=== PATIENT | male | born 1975 | race Caucasian/White ===

== ENCOUNTER 2018-01-09 20:20 | Emergency (ER) | payer MEDICARE, MEDICAID, SELFPAY ==
[2018-01-09 20:26] VITALS: BP 158/105; PULSE 84; RESP 18; TEMP 36.5; O2SAT 96
--- NOTE | 2018-01-09 20:47 | W.ED.GENAD ---
Discharge Plan Disposition Patient Disposition: HOME Condition: Improving Discharge Details Chief Complaint: Orthopedic Clinical Impression: Podagra Primary Care Provider: Sotero Whitt ED Provider: Benjie Morales Home Meds and New Rx's Prescriptions: New prednisone 20 mg tablet 40 mg PO DAILY 5 Days Qty: 10 RF: 0 Discharge Instructions Instructions: Gout (ED) Additional Instructions: Please take prednisone as prescribed. Follow-up in and establish primary care, for which we will place you on her follow-up list, for blood pressure recheck and to consider long-term gout therapy. Return for any acute concerns. Tylenol and/or ibuprofen as needed for pain. Please take the prednisone as prescribed Medical Decision Making 42-year-old male with history of recurrent episodes of gout presents with 3 days of right foot pain that is focused at the right great toe. He is afebrile but noted to have hypertension with blood pressures 158/100. His exam is notable for Protegra of the right foot. He states that he used to take allopurinol, not currently on regular medications. We discussed workup, evaluation, management of gout including laboratory testing, imaging, the use of colchicine versus prednisone. He states that he does not wish to stay for diagnostic tests. I do feels reasonable to place him on a course of prednisone, we will arrange for him to establish primary care near his home in [place]. He will return for any acute concerns HPI General Mode of arrival: ambulatory. Date/Time Provider Initiated Documentation: 01/09/18 20:39. Limitations to Documentation: no limitations. Information obtained by: patient and old records reviewed. History of Present Illness 42 year old M presents to the emergency department with the chief complaint of Right foot pain, described as moderate, Quality is described as aching, and is localized to the right and lower extremity. Patient reports no radiation. Patient started experiencing this day(s) and it has been constant. No relieving factors improve symptom(s), Movement worsens symptoms . Patient notes no other symptoms.; denies fever/chills. HPI Narrative: 42-year-old male with a history of recurrent episodes of gout presents with 3 days of dull, achy, nonradiating right foot pain with associated erythema and swelling. He has been ambulatory. He states he has had some minimal improvement with use of Tylenol. He states he lives in [place] and currently does not have a primary care physician. States that he used to be on allopurinol but not currently taking medications. Related Data Home Medications Medication Instructions Recorded Confirmed prednisone 40 mg PO DAILY 5 Days #10 tab 01/09/18 Previous Rx's Medication Instructions Recorded prednisone 40 mg PO DAILY 5 Days #10 tab 01/09/18 Allergies Allergy/AdvReac Type Severity Reaction Status Date / Time povidone-iodine Allergy Skin Rash Unverified 01/09/18 20:30 [From Betadine] soap [From Betadine] Allergy Skin Rash Unverified 01/09/18 20:30 General Stated Complaint: Orthopedic MAZIN: 4 Review of Systems Review of Systems 6 systems reviewed and otherwise negative PFSH Social History Smoking/Tobacco Use Status: Current every day Exam Narrative Exam Narrative: GEN: awake, alert, oriented 3. Pleasant, well groomed, interactive. HEAD: Normocephalic, atraumatic ENT: Mucous membranes moist, oropharynx unremarkable, External ear exam unremarkable EYES: PERRL, EOMI NECK: Full ROM, no ALEXUS, no menigismus CHEST/RESP: Nontender, clear to auscultation bilateral, no wheeze/rhonchi/rales CARDIOVASCULAR: RRR, no murmur, rub najma. 2+ Rad pulse bilateral EXT: Full ROM, there is erythema focused at the right great toe base with surrounding mild edema and tenderness to palpation of the foot. 1+ dorsalis pedis bilaterally. Motor and sensory intact throughout the lower extremity. Neuro: Grossly normal neurologic exam, conversant, interactive. Psych: Speech fluent, thoughts congruent, affect normal Course Vital Signs Temperature 36.5 C 01/09/18 20:26 Pulse 84 01/09/18 20:26 Respiratory Rate 18 01/09/18 20:26 Blood Pressure 158/105 H 01/09/18 20:26 Pulse Oximetry 96 01/09/18 20:26 Temperature 36.5 C 01/09/18 20:26 Temperature Source Temporal Artery Scan 01/09/18 20:26 Pulse 84 01/09/18 20:26 Respiratory Rate 18 01/09/18 20:26 Respiratory Effort Non-Labored 01/09/18 20:26 Blood Pressure 158/105 H 01/09/18 20:26 Pulse Oximetry 96 01/09/18 20:26 Oxygen Delivery Method Room Air 01/09/18 20:26 Oxygen Flow Rate 0 01/09/18 20:26 Pain Level 8 01/09/18 20:31
--- NOTE | 2018-01-09 20:52 | ED.GENADUL_ITS ---
Discharge Plan Disposition Patient Disposition: HOME Condition: Improving Discharge Details Chief Complaint: Orthopedic Clinical Impression: Podagra Primary Care Provider: Sotero Whitt ED Provider: Benjie Morales Home Meds and New Rx's Prescriptions: New prednisone 20 mg tablet 40 mg PO DAILY 5 Days Qty: 10 RF: 0 Discharge Instructions Instructions: Gout (ED) Additional Instructions: Please take prednisone as prescribed. Follow-up in and establish primary care, for which we will place you on her follow-up list, for blood pressure recheck and to consider long-term gout therapy. Return for any acute concerns. Tylenol and/or ibuprofen as needed for pain. Please take the prednisone as prescribed Medical Decision Making 42-year-old male with history of recurrent episodes of gout presents with 3 days of right foot pain that is focused at the right great toe. He is afebrile but noted to have hypertension with blood pressures 158/100. His exam is notable for Protegra of the right foot. He states that he used to take allopurinol, not currently on regular medications. We discussed workup, evaluation, management of gout including laboratory testing, imaging, the use of colchicine versus prednisone. He states that he does not wish to stay for diagnostic tests. I do feels reasonable to place him on a course of prednisone, we will arrange for him to establish primary care near his home in [place]. He will return for any acute concerns HPI General Mode of arrival: ambulatory . Date/Time Provider Initiated Documentation: 01/09/18 20:39 . Limitations to Documentation: no limitations . Information obtained by: patient and old records reviewed . History of Present Illness 42 year old M presents to the emergency department with the chief complaint of Right foot pain, described as moderate, Quality is described as aching, and is localized to the right and lower extremity. Patient reports no radiation. Patient started experiencing this day(s) and it has been constant. No relieving factors improve symptom(s), Movement worsens symptoms . Patient notes no other symptoms.; denies fever/chills. HPI Narrative: 42-year-old male with a history of recurrent episodes of gout presents with 3 days of dull, achy, nonradiating right foot pain with associated erythema and swelling. He has been ambulatory. He states he has had some minimal improvement with use of Tylenol. He states he lives in [place] and currently does not have a primary care physician. States that he used to be on allopurinol but not currently taking medications. Related Data Home Medications Medication Instructions Recorded Confirmed prednisone 40 mg PO DAILY 5 Days #10 tab 01/09/18 Previous Rx's Medication Instructions Recorded prednisone 40 mg PO DAILY 5 Days #10 tab 01/09/18 Allergies Allergy/AdvReac Type Severity Reaction Status Date / Time povidone-iodine Allergy Skin Rash Unverified 01/09/18 20:30 [From Betadine] soap [From Betadine] Allergy Skin Rash Unverified 01/09/18 20:30 General Stated Complaint: Orthopedic MAZIN: 4 Review of Systems Review of Systems 6 systems reviewed and otherwise negative PFSH Social History Smoking/Tobacco Use Status: Current every day Exam Narrative Exam Narrative: GEN: awake, alert, oriented 3. Pleasant, well groomed, interactive. HEAD: Normocephalic, atraumatic ENT: Mucous membranes moist, oropharynx unremarkable, External ear exam unremarkable EYES: PERRL, EOMI NECK: Full ROM, no ALEXUS, no menigismus CHEST/RESP: Nontender, clear to auscultation bilateral, no wheeze/rhonchi/rales CARDIOVASCULAR: RRR, no murmur, rub najma. 2+ Rad pulse bilateral EXT: Full ROM, there is erythema focused at the right great toe base with surrounding mild edema and tenderness to palpation of the foot. 1+ dorsalis pedis bilaterally. Motor and sensory intact throughout the lower extremity. Neuro: Grossly normal neurologic exam, conversant, interactive. Psych: Speech fluent, thoughts congruent, affect normal Course Vital Signs Temperature 36.5 C 01/09/18 20:26 Pulse 84 01/09/18 20:26 Respiratory Rate 18 01/09/18 20:26 Blood Pressure 158/105 H 01/09/18 20:26 Pulse Oximetry 96 01/09/18 20:26 Temperature 36.5 C 01/09/18 20:26 Temperature Source Temporal Artery Scan 01/09/18 20:26 Pulse 84 01/09/18 20:26 Respiratory Rate 18 01/09/18 20:26 Respiratory Effort Non-Labored 01/09/18 20:26 Blood Pressure 158/105 H 01/09/18 20:26 Pulse Oximetry 96 01/09/18 20:26 Oxygen Delivery Method Room Air 01/09/18 20:26 Oxygen Flow Rate 0 01/09/18 20:26 Pain Level 8 01/09/18 20:31
[2018-01-09] MEDS: predniSONE 20 MG TAB 60 MG PO (21:00)
[2018-01-09] MEDS: oxyCODONE 5 mg/Acetaminophen 325 mg TAB 2 TAB PO (21:00)
--- NOTE | 2018-01-11 07:38 | PDOC.ERCMPRO ---
Care Management Progress Note 01/11-Dr. Morales requested assistance with a PCP f/u in 1-2 weeks for right foot pain, right great toe. Patient used to see Sotero Whitt as PCP but can not get to that practice. Needs local PCP. Diana Becerril is automation mechanic. Referral faxed to [facility] this am.
--- NOTE | 2018-01-11 07:41 | CMPROGNOTE_ITS ---
Care Management Progress Note 01/11-Dr. Morales requested assistance with a PCP f/u in 1-2 weeks for right foot pain, right great toe. Patient used to see Sotero Whitt as PCP but can not get to that practice. Needs local PCP. Diana Becerril is ad operations specialist. Referral faxed to [facility] this am.
== END 2018-01-09 21:03 | disposition home or self-care (01) ==
LOC: ER 20:58
PROVIDERS: Emergency Provider Emergency Medicine; PCP Family Medicine
DX: M10.9 Gout, unspecified (principal)
CPT/HCPCS: 99283; J7512

== ENCOUNTER 2018-04-10 08:42 | Emergency (ER) | payer MEDICARE, MEDICAID, SELFPAY ==
[2018-04-10 08:48] VITALS: BP 160/105; PULSE 94; RESP 18; TEMP 37.4; O2SAT 99
--- NOTE | 2018-04-10 09:05 | ED.GENADUL_ITS ---
Discharge Plan Disposition Patient Disposition: HOME Discharge Details Chief Complaint: GenMedical Clinical Impression: Gout flare Primary Care Provider: Sotero Whitt ED Provider: Edward Kelsey Home Meds and New Rx's Prescriptions: New prednisone 20 mg tablet 40 mg PO DAILY Qty: 8 RF: 0 Discharge Instructions Instructions: Gout (ED) Additional Instructions: Please take ibuprofen over the counter - dose according to label. Take prednisone as prescribed. Please follow-up with a primary care physician. Return to the ER for any worsening or new concerning symptoms. Referrals: Raiza Varghese [NURSE PRACTITIONER] - Medical Decision Making 42-year-old male with history of chronic back pain as well as gout with inter mittent flares, here with inflammatory arthritis consistent with prior gout exacerbations. Plan is to treat with ibuprofen and prednisone. Patient notes that he has used colchicine for exacerbations in the past without relief. He specifically requesting prescription for prednisone. Plan to give prednisone 60 mg here as well as ibuprofen 600 mg and will discharge on and is on prednisone burst. Patient notes that he does not take indomethacin for chronic management but would like to. He has had difficulty obtaining prescription for indomethacin as a result of insurance requiring authorization. Patient does not currently have a primary care physician and is requesting referral. Usual and customary discharge instructions were provided. HPI General Mode of arrival: ambulatory . Date/Time Provider Initiated Documentation: 04/10/18 08:57 . Limitations to Documentation: no limitations . Information obtained by: patient . HPI Narrative: 42-year-old male with history of chronic back pain as well as gout, here with chief complaint of gout flare. Patient notes that for the past 2 days he has had persistent, worsening pain and swelling of his joints. Worst pain is in his left ankle but he also has pain in his right ankle. Pain worse with ambulation. Symptoms are exactly the same as prior gout flares. No associated fever. Related Data Home Medications Medication Instructions Recorded Confirmed prednisone 40 mg PO DAILY #8 tab 04/10/18 Previous Rx's Medication Instructions Recorded prednisone 40 mg PO DAILY #8 tab 04/10/18 Allergies Allergy/AdvReac Type Severity Reaction Status Date / Time povidone-iodine Allergy Skin Rash Unverified 04/10/18 08:55 [From Betadine] soap [From Betadine] Allergy Skin Rash Unverified 04/10/18 08:55 General Stated Complaint: GenMedical MAZIN: 3 Review of Systems Constitutional Denies fever(s) Musculoskeletal Reports as per HPI Integumentary/Breasts Denies rash PFSH Medical History Back pain (Chronic) Gout (Chronic) Social History Smoking/Tobacco Use Status: Current every day Exam Const General: uncomfortable Orientation: alert and awake HENMT Mouth: moist mucous membranes Eyes Conjunctivae: normal conjunctivae Sclera: normal sclerae Resp Auscultation: clear to auscultation bilaterally, no rales, no rhonchi and no wheezes Cardio Jugular venous pressure: no JVD Rate: regular rate and not tachycardic Rhythm: regular rhythm Skin General skin exam: no rashes or lesions noted Neuro General: alert, awake, oriented x3 and tone normal Extrem Right lower extremity: ankle Details: tenderness, swelling and abnormal ROM Details: pain with active ROM and pain with passive ROM Left lower extremity: ankle Details: tenderness, swelling and abnormal ROM Details: pain with active ROM and pain with passive ROM Psych Appearance: grossly normal Mental Status: mental status grossly normal Speech and Movement: speech and movement normal Course Vital Signs Temperature 37.4 C 04/10/18 08:48 Pulse 94 H 04/10/18 08:48 Respiratory Rate 18 04/10/18 08:48 Blood Pressure 160/105 H 04/10/18 08:48 Pulse Oximetry 99 04/10/18 08:48 Temperature 37.4 C 04/10/18 08:48 Temperature Source Skin 04/10/18 08:48 Pulse 94 H 04/10/18 08:48 Respiratory Rate 18 04/10/18 08:48 Respiratory Effort 04/10/18 08:56 Blood Pressure 160/105 H 04/10/18 08:48 Blood Pressure Position Sitting 04/10/18 08:48 Pulse Oximetry 99 04/10/18 08:48 Oxygen Delivery Method Room Air 04/10/18 08:48 Oxygen Flow Rate 0 04/10/18 08:48 Pain Level 7 04/10/18 08:48
[2018-04-10] MEDS: Ibuprofen 600 MG TAB PO (09:15)
[2018-04-10] MEDS: predniSONE 20 MG TAB 60 MG PO (09:15)
--- NOTE | 2018-04-12 12:02 | PDOC.ERCMPRO ---
Care Management Progress Note 04/12-Dr. Kelsey requested assistance with a routine f/u at PCP (does not have one, Raiza Varghese is demolition engineer) for chronic management of gout and to establish primary care. Referral faxed to [facility] this am.
--- NOTE | 2018-04-12 12:04 | CMPROGNOTE_ITS ---
Care Management Progress Note 04/12-Dr. Kelsey requested assistance with a routine f/u at PCP (does not have one, Raiza Varghese is diabetes solutions specialist) for chronic management of gout and to establish primary care. Referral faxed to [facility] this am.
== END 2018-04-10 09:20 | disposition home or self-care (01) ==
LOC: ER 09:21
PROVIDERS: Emergency Provider Student in an Organized Health Care Education/Training Program
DX: M25.572 Pain in left ankle and joints of left foot (principal); M10.9 Gout, unspecified
CPT/HCPCS: 99283; J7512

== ENCOUNTER 2018-04-27 02:50 | Emergency (ER) | payer MEDICARE, MEDICAID, SELFPAY ==
[2018-04-27 02:54] VITALS: BP 173/128; PULSE 108; RESP 16; TEMP 36.8; O2SAT 98
[2018-04-27] MEDS: Ibuprofen 800 MG TAB PO (03:12)
[2018-04-27] MEDS: Acetaminophen 500 MG TAB (03:13)
--- NOTE | 2018-04-27 03:21 | W.ED.GENAD ---
Discharge Plan Disposition Patient Disposition: HOME Condition: Good Discharge Details Chief Complaint: GenMedical Clinical Impression: Gout attack Primary Care Provider: None,None ED Provider: Junior Wyman Home Meds and New Rx's Prescriptions: New acetaminophen [Mapap Extra Strength] 500 MG tablet 1,000 mg PO Q6H 5 Days Qty: 60 RF: 0 prednisone 50 MG tablet 50 mg PO DAILY Qty: 5 RF: 0 ibuprofen [Motrin IB] 200 MG tablet 600 mg PO Q6H 5 Days Qty: 60 RF: 0 Discharge Instructions Instructions: Gout (ED) Additional Instructions: Please avoid preserved meats, caviar, high protein foods. Please take medication as directed. We will contact our case management for referral to the primary care provider that referred to the last. If you notice any worsening of your symptoms, or any new symptoms such as vomiting, diarrhea, fever, chills, shortness of breath, chest pain, numbness, weakness, or fainting , please return immediately to the emergency department for reevaluation. Please follow up with your primary care provider as soon as possible for reassessment and reevaluation. As always, it was a pleasure participating in your medical care today. Medical Decision Making This is a pleasant 42-year-old male with a past medical history of gout who presents with signs and symptoms clinically consistent with gout. He has bilateral ankle pain that he states feels like his previous gout episodes. He denies any fever, chills, or trauma. No signs of deformity or infection on exam. The patient was here in March with a similar episode, and he tolerated steroids and ibuprofen well and had resolution of his symptoms then. He was given the information for primary care provider at that time, and her field nurse case manager did set him up with 1 per the note however the patient states that he is still not been called back by the PCP does not been able to follow-up and is requesting help with this. We will give Tylenol, ibuprofen, and steroids here, as well as a prescription for a steroid burst and NSAIDs at home. We will Place Lidoderm patches on here in the ED. We will again asked for assistance from care management in the morning for help with referral for the patient. With no evidence of trauma or signs of infection I do not feel that further workup is indicated. I did discuss with the patient getting radiographic imaging for general evaluation of the joints and the patient would like to hold off for the time being for any additional imaging. I have extensively reviewed the treatment plan and discharge instructions with the patient. I have addressed all patient concerns at this time. The patient was made aware of what symptoms to monitor for that would warrant a return to the emergency department. Discussed the plan with the patient, they demonstrate verbal understanding and agreement with our assessment and plan at this time. HPI General Date/Time Provider Initiated Documentation: 04/27/18 03:01. HPI Narrative: This is a pleasant 42-year-old male with a past medical history of gout who presents today for evaluation of bilateral ankle pain. The patient states that his pain started yesterday, and is gradually worsened, specifically tonight. He states that it feels just like his regular gout. He has been treated here in the past in the ED has had notable improvement of his symptoms with treatment. He is not on colchicine or indomethacin. Per history it sounds like he has not benefited from treatment with this in the past. He has benefited from NSAIDs and steroids in the past with notable improvement. The patient denies any significant falls or trauma. He denies any fever, chills, redness or warmth. He denies IV or illicit drug use. He denies any other complaints. Symptoms are made worse with movement, improved by nothing. He has not taken any Tylenol or Motrin yet. Related Data Home Medications Medication Instructions Recorded Confirmed acetaminophen [Mapap Extra 1,000 mg PO Q6H 5 Days #60 tab 04/27/18 Strength] ibuprofen [Motrin Ib] 600 mg PO Q6H 5 Days #60 tab 04/27/18 prednisone 50 mg PO DAILY #5 tab 04/27/18 Previous Rx's Medication Instructions Recorded acetaminophen [Mapap Extra 1,000 mg PO Q6H 5 Days #60 tab 04/27/18 Strength] ibuprofen [Motrin Ib] 600 mg PO Q6H 5 Days #60 tab 04/27/18 prednisone 50 mg PO DAILY #5 tab 04/27/18 Allergies Allergy/AdvReac Type Severity Reaction Status Date / Time povidone-iodine Allergy Skin Rash Unverified 04/27/18 02:54 [From Betadine] soap [From Betadine] Allergy Skin Rash Unverified 04/27/18 02:54 General Stated Complaint: GenMedical MAZIN: 4 Review of Systems Review of Systems All systems reviewed & are unremarkable except as noted in HPI and below [facility] Social History Smoking and Tabacco status: Current every day Exam Narrative Exam Narrative: 1.Const: Well-nourished, Well-developed, appearing stated age 2.Eyes: PERRL, no conjunctival injection, and symmetrical lids. 3.ENT: Atraumatic external nose and ears. Moist MM. Neck: Symmetric, trachea midline, No thyromegaly. 4.CVS: +S1/S2, No murmurs or gallops. Peripheral pulses 2+ and equal in all extremities. Brisk capillary refill in all extremities. 5.RESP: Unlabored respiratory effort. Clear to auscultation bilaterally. No wheezes rales or rhonchi 6.GI: Soft, Nontender/Nondistended, No hepatosplenomegaly. No guarding or rebound. 7.MSK: Normocephalic/Atraumatic, Extremities w/o deformity. No cyanosis or clubbing, Normal movement of all extremities, however there is slight limitation of movement of the ankle secondary to pain. Ankles bilaterally demonstrate no significant erythema or edema. No significant warmth. No signs of cellulitis or significant infection. Notable pain on palpation throughout with no evidence of deformity, or trauma. There is also mild pain noted over the great toe for both feet bilaterally. Dorsalis pedis and posterior tibial pulse +2 bilaterally, brisk capillary refill and intact sensation. 8.Skin: Warm, Dry. No rashes or lesions. 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 Sensation grossly intact, no focal neurologic deficits. 10.Psych: (AAO) x3. Appropriate mood and affect Course Vital Signs Temperature 36.8 C 04/27/18 02:54 Pulse 108 H 04/27/18 02:54 Respiratory Rate 16 04/27/18 02:54 Blood Pressure 173/128 H 04/27/18 02:54 Pulse Oximetry 98 04/27/18 02:54 Temperature 36.8 C 04/27/18 02:54 Temperature Source Temporal Artery Scan 04/27/18 02:54 Pulse 108 H 04/27/18 02:54 Respiratory Rate 16 04/27/18 02:54 Respiratory Effort 04/27/18 02:57 Respiratory Depth Normal 04/27/18 02:57 Respiratory Pattern Normal 04/27/18 02:57 Blood Pressure 173/128 H 04/27/18 02:54 Blood Pressure Position Sitting 04/27/18 02:54 Pulse Oximetry 98 04/27/18 02:54 Oxygen Delivery Method Room Air 04/27/18 02:54 Oxygen Flow Rate 0 04/27/18 02:54
[2018-04-27] MEDS: Lidocaine 5% Patch 2 PATCH TP (03:23)
[2018-04-27] MEDS: predniSONE 20 MG TAB 60 MG PO (03:24)
--- NOTE | 2018-04-27 03:26 | ED.GENADUL_ITS ---
Discharge Plan Disposition Patient Disposition: HOME Condition: Good Discharge Details Chief Complaint: GenMedical Clinical Impression: Gout attack Primary Care Provider: None,None ED Provider: Junior Wyman Home Meds and New Rx's Prescriptions: New acetaminophen [Mapap Extra Strength] 500 MG tablet 1,000 mg PO Q6H 5 Days Qty: 60 RF: 0 prednisone 50 MG tablet 50 mg PO DAILY Qty: 5 RF: 0 ibuprofen [Motrin IB] 200 MG tablet 600 mg PO Q6H 5 Days Qty: 60 RF: 0 Discharge Instructions Instructions: Gout (ED) Additional Instructions: Please avoid preserved meats, caviar, high protein foods. Please take medication as directed. We will contact our case management for referral to the primary care provider that referred to the last. If you notice any worsening of your symptoms, or any new symptoms such as vomiting, diarrhea, fever, chills, shortness of breath, chest pain, numbness, weakness, or fainting , please return immediately to the emergency department for reevaluation. Please follow up with your primary care provider as soon as possible for reassessment and reevaluation. As always, it was a pleasure participating in your medical care today. Medical Decision Making This is a pleasant 42-year-old male with a past medical history of gout who presents with signs and symptoms clinically consistent with gout. He has bilateral ankle pain that he states feels like his previous gout episodes. He denies any fever, chills, or trauma. No signs of deformity or infection on exam. The patient was here in March with a similar episode, and he tolerated steroids and ibuprofen well and had resolution of his symptoms then. He was gi margareth the information for primary care provider at that time, and her immigration case manager did set him up with 1 per the note however the patient states that he is still not been called back by the PCP does not been able to follow-up and is requesting help with this. We will give Tylenol, ibuprofen, and steroids here, as well as a prescription for a steroid burst and NSAIDs at home. We will Place Lidoderm patches on here in the ED. We will again asked for assistance from care management in the morning for help with referral for the patient. With no evidence of trauma or signs of infection I do not feel that further workup is indicated. I did discuss with the patient getting radiographic imaging for general evaluation of the joints and the patient would like to hold off for the time being for any additional imaging. I have extensively reviewed the treatment plan and discharge instructions with the patient. I have addressed all patient concerns at this time. The patient was made aware of what symptoms to monitor for that would warrant a return to the emergency department. Discussed the plan with the patient, they demonstrate verbal understanding and agreement with our assessment and plan at this time. HPI General Date/Time Provider Initiated Documentation: 04/27/18 03:01 . HPI Narrative: This is a pleasant 42-year-old male with a past medical history of gout who presents today for evaluation of bilateral ankle pain. The patient states that his pain started yesterday, and is gradually worsened, specifically tonight. He states that it feels just like his regular gout. He has been treated here in the past in the ED has had notable improvement of his symptoms with treatment. He is not on colchicine or indomethacin. Per history it sounds like he has not benefited from treatment with this in the past. He has benefited from NSAIDs and steroids in the past with notable improvement. The patient denies any significant falls or trauma. He denies any fever, chills, redness or warmth. He denies IV or illicit drug use. He denies any other complaints. Symptoms are made worse with movement, improved by nothing. He has not taken any Tylenol or Motrin yet. Related Data Home Medications Medication Instructions Recorded Confirmed acetaminophen [Mapap Extra 1,000 mg PO Q6H 5 Days #60 tab 04/27/18 Strength] ibuprofen [Motrin Ib] 600 mg PO Q6H 5 Days #60 tab 04/27/18 prednisone 50 mg PO DAILY #5 tab 04/27/18 Previous Rx's Medication Instructions Recorded acetaminophen [Mapap Extra 1,000 mg PO Q6H 5 Days #60 tab 04/27/18 Strength] ibuprofen [Motrin Ib] 600 mg PO Q6H 5 Days #60 tab 04/27/18 prednisone 50 mg PO DAILY #5 tab 04/27/18 Allergies Allergy/AdvReac Type Severity Reaction Status Date / Time povidone-iodine Allergy Skin Rash Unverified 04/27/18 02:54 [From Betadine] soap [From Betadine] Allergy Skin Rash Unverified 04/27/18 02:54 General Stated Complaint: GenMedical MAZIN: 4 Review of Systems Review of Systems All systems reviewed & are unremarkable except as noted in HPI and below [facility] Social History Smoking and Tabacco status: Current every day Exam Narrative Exam Narrative: 1.Const: Well-nourished, Well-developed, appearing stated age 2.Eyes: PERRL, no conjunctival injection, and symmetrical lids. 3.ENT: Atraumatic external nose and ears. Moist MM. Neck: Symmetric, trachea m idline, No thyromegaly. 4.CVS: +S1/S2, No murmurs or gallops. Peripheral pulses 2+ and equal in all extremities. Brisk capillary refill in all extremities. 5.RESP: Unlabored respiratory effort. Clear to auscultation bilaterally. No wheezes rales or rhonchi 6.GI: Soft, Nontender/Nondistended, No hepatosplenomegaly. No guarding or rebound. 7.MSK: Normocephalic/Atraumatic, Extremities w/o deformity. No cyanosis or clubbing, Normal movement of all extremities, however there is slight limitation of movement of the ankle secondary to pain. Ankles bilaterally demonstrate no significant erythema or edema. No significant warmth. No signs of cellulitis or significant infection. Notable pain on palpation throughout with no evidence of deformity, or trauma. There is also mild pain noted over the great toe for both feet bilaterally. Dorsalis pedis and posterior tibial pulse +2 bilaterally, brisk capillary refill and intact sensation. 8.Skin: Warm, Dry. No rashes or lesions. 9.Neuro: corsetier II-XII grossly intact. Sensation grossly intact, no focal neurologic deficits. 10.Psych: (AAO) x3. Appropriate mood and affect Course Vital Signs Temperature 36.8 C 04/27/18 02:54 Pulse 108 H 04/27/18 02:54 Respiratory Rate 16 04/27/18 02:54 Blood Pressure 173/128 H 04/27/18 02:54 Pulse Oximetry 98 04/27/18 02:54 Temperature 36.8 C 04/27/18 02:54 Temperature Source Temporal Artery Scan 04/27/18 02:54 Pulse 108 H 04/27/18 02:54 Respiratory Rate 16 04/27/18 02:54 Respiratory Effort 04/27/18 02:57 Respiratory Depth Normal 04/27/18 02:57 Respiratory Pattern Normal 04/27/18 02:57 Blood Pressure 173/128 H 04/27/18 02:54 Blood Pressure Position Sitting 04/27/18 02:54 Pulse Oximetry 98 04/27/18 02:54 Oxygen Delivery Method Room Air 04/27/18 02:54 Oxygen Flow Rate 0 04/27/18 02:54
--- NOTE | 2018-04-27 08:39 | PDOC.ERCMPRO ---
Care Management Progress Note 04/27-Dr. Wyman requested assistance with a PCP f/u within two weeks for gout. Patient was seen on 04/10 and this CM sent a referral on 04/12 to [facility] as Raiza Varghese was technical operations vice president. Patient stated to ED staff that he has tried to reach provider office but has not had a call back. Referral faxed to [facility] this am.
--- NOTE | 2018-04-27 08:42 | CMPROGNOTE_ITS ---
Care Management Progress Note 04/27-Dr. Wyman requested assistance with a PCP f/u within two weeks for gout. Patient was seen on 04/10 and this CM sent a referral on 04/12 to [facility] as Raiza Varghese was cushion former. Patient stated to ED staff that he has tried to reach provider office but has not had a call back. Referral faxed to [facility] this am.
== END 2018-04-27 03:32 | disposition home or self-care (01) ==
PROVIDERS: Emergency Provider Student in an Organized Health Care Education/Training Program; PCP Nurse Practitioner Family
DX: M25.571 Pain in right ankle and joints of right foot (principal); M25.572 Pain in left ankle and joints of left foot; M10.9 Gout, unspecified
CPT/HCPCS: 99283; J7512

== ENCOUNTER 2018-05-05 11:53 | Emergency (ER) | payer MEDICARE, MEDICAID, SELFPAY ==
[2018-05-05 11:34] VITALS: BP 167/99; PULSE 91; RESP 22; TEMP 37.3; O2SAT 95
--- NOTE | 2018-05-05 12:00 | DI.CT_ITS ---
SYMPTOMS/DIAGNOSIS: PERIUMBILICAL ABDOMINAL PAIN X 4 DAYS, DIARRHEA CT SCAN OF THE ABDOMEN AND PELVIS: CT scan of the abdomen and pelvis was performed following the uneventful administration of intravenous contrast material. There are no priors for comparison. No acute abnormality is seen in the lung base. The liver is normal in size. No suspicious hepatic masses identified. The portal, superior mesenteric and splenic veins are patent. The gallbladder is negative by CT criteria. There is no biliary ductal dilatation. The pancreas, spleen and adrenal glands are unremarkable. The kidneys show normal and symmetric enhancement. No evidence of a solid renal mass or obstruction is present. The urinary bladder is intact. The reproductive organs are unremarkable. The abdominal aorta is of normal caliber. No significant abdominal or pelvic adenopathy, ascites or pneumoperitoneum is present. There is an abrupt change in the caliber of the bowel in the mid sigmoid colon. No pericolonic inflammatory changes are seen. Colitis cannot be entirely excluded. There are diverticula seen in the proximal sigmoid colon, but no inflammatory changes are seen in the region. The remainder of the bowel is unremarkable. No evidence of an acute appendicitis. Degenerative changes are seen in the spine. No periumbilical inflammatory process is seen. IMPRESSION: Relative decreased caliber of the mid sigmoid colon to the rectum with a question of mild thickening of the wall of the bowel. This may be due to underdistention. No definite pericolonic inflammatory change is seen, but a mild colitis cannot be excluded. Mass cannot be entirely excluded in this patient. A follow-up with colonoscopy and/or barium enema is recommended. The remainder of the abdomen and pelvis are unremarkable. The findings were discussed with the Emergency Department on the date of the examination.
[2018-05-05 12:03] LABS: Abs Immature Grans 0.05 k/cumm (0.0-0.09); Absolute Basophil Count 0.04 k/cumm (0.0-0.2); Absolute Eosinophil Count 0.07 k/cumm (0.0-0.7); Absolute Lymphocyte Count 3.49 k/cumm (1.2-3.4); Absolute Monocyte Count 0.68 k/cumm (0.11-0.7); Absolute Neutrophil Count 6.64 k/cumm (1.2-6.7); Basophils % 0.4; Eosinophils % 0.6; HCT 42.6 % (40.0-50.0); HGB 14.6 g/dL (13.5-17.5); Immature Grans % 0.5; Lymphocytes % 31.8; Mean Corp. HGB Concentration 34.3 g/dL (32.0-36.0); Mean Corpuscular Hemoglobin 31.5 pg (27.0-33.0); Mean Platelet Volume 9.1 fL (8.0-11.0); Monocytes % 6.2; Neutrophils % 60.5; Platelet Count 369 x1000/uL (130-400); RBC 4.63 m/cumm (4.50-6.00); RBC Distribution Width 12.5 % (11.8-14.1); White Blood Cell Count 10.97 k/cumm (4.4-10.8)
[2018-05-05] MEDS: Ondansetron 4 MG/2 ML VIAL IVP (12:03)
[2018-05-05] MEDS: Normal Saline 1,000 ML 1000 ML IV (12:03)
[2018-05-05] MEDS: MORPHine 10 MG/ML VIAL 6 MG IVP (12:05)
--- NOTE | 2018-05-05 12:07 | NUR.NOTE ---
patient medicated per MD order Nursing Note:
[2018-05-05 12:16] LABS: ALT 51 U/L (12-78); AST 37 U/L (15-37); Albumin 4.2 g/dL (3.4-5.0); Alkaline Phosphatase 51 U/L (46-116); Anion Gap 12.7 mmol/L (3-11); BUN 7 mg/dL (7-18); Bilirubin, Total 0.6 mg/dL (0.2-1.0); CO2 24.3 mmol/L (21.0-32.0); CREATININE 0.91 mg/dL (0.70-1.30); Calcium 9.2 mg/dL (8.5-10.1); Chloride 101 mmol/L (98-107); Glucose 117 mg/dL (70-100); Lipase 60 U/L (73-393); Potassium 3.7 mmol/L (3.5-5.1); Sodium 138 mmol/L (136-145); Total Protein 8.3 g/dL (6.4-8.2)
--- NOTE | 2018-05-05 12:49 | NUR.NOTE ---
patient reports pain improved Nursing Note:
[2018-05-05 12:53] LABS: Bilirubin Negative (Negative); Blood Negative (Negative); Clarity Clear; Glucose Negative (Negative); Ketones Negative (Negative); Leukocyte Esterase Negative (Negative); Nitrite Negative (Negative); Urobilinogen 0.2 EU/dL (Up TO 0.2); pH 6.5 (5-8)
[2018-05-05 13:17] VITALS: BP 143/76; PULSE 84; RESP 18; TEMP 36.6; O2SAT 97
[2018-05-05] MEDS: Omnipaque 350 MG/ML 100 ML BTL IV (13:20)
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
[2018-05-05] MEDS: metroNIDAZOLE 500 MG TAB PO (14:29)
[2018-05-05] MEDS: Ciprofloxacin 500 MG TAB PO (14:29)
--- NOTE | 2018-05-05 14:29 | NUR.NOTE ---
patient medicated per MD order Nursing Note:
--- NOTE | 2018-05-05 14:36 | NUR.NOTE ---
patient home with RCT Nursing Note:
--- NOTE | 2018-05-06 08:44 | CMPROGNOTE_ITS ---
Care Management Progress Note 05/06-Dr. Wyman requested assistance with a PCP (June) f/u soon to arrange for colonoscopy. Referral faxed to [facility] am.
== END 2018-05-05 14:40 | disposition home or self-care (01) ==
PROVIDERS: Emergency Provider Student in an Organized Health Care Education/Training Program; PCP Nurse Practitioner Family
DX: K29.00 Acute gastritis without bleeding (principal); K52.9 Noninfective gastroenteritis and colitis, unspecified
CPT/HCPCS: 36415; 80053; 83690; 96361; 96374; 96375; 99285; 74177; 81003; 85025; 99284; J2270; J2405; J3490

== ENCOUNTER 2018-05-14 00:35 | Outpatient (CLI) | payer MEDICARE, MEDICAID, SELFPAY ==
--- NOTE | 2018-05-14 09:56 | DI.RAD_ITS ---
SYMPTOM/DIAGNOSIS: BILAT FOOT PAIN, M79.671, M79.672 LEFT FOOT: No fracture or dislocation is seen.. There are no significant degenerative change. No bony erosions are seen. IMPRESSION: Negative left foot. RIGHT FOOT: There is deformity of the first metatarsal head, presumably related to previous bunionectomy. There is mild hallux valgus and mild first MTP joint degenerative changes. The remaining MTP joints are unremarkable. There are mild degenerative changes at the talonavicular and navicular cuneiform joints as well as calcaneal cuboid joint. IMPRESSION: Post surgical and degenerative changes.
== END 2018-05-14 00:55 ==
PROVIDERS: PCP Nurse Practitioner Family; Visit Provider Nurse Practitioner Family
DX: M79.671 Pain in right foot (principal); M79.672 Pain in left foot; M19.071 Primary osteoarthritis, right ankle and foot; M20.11 Hallux valgus (acquired), right foot; Z98.890 Other specified postprocedural states
CPT/HCPCS: 73630

== ENCOUNTER 2018-05-26 19:56 | Emergency (ER) | payer MEDICARE, MEDICAID, SELFPAY ==
[2018-05-26 19:59] VITALS: BP 130/98; PULSE 120; TEMP 36.2; O2SAT 96
--- NOTE | 2018-05-26 20:11 | W.ED.GENAD ---
Discharge Plan Disposition Patient Disposition: HOME Condition: Stable Discharge Details Chief Complaint: Orthopedic Clinical Impression: Gout attack Primary Care Provider: David Watkins ED Provider: Mike Flowers Home Meds and New Rx's Prescriptions: New prednisone 20 mg tablet 20 mg PO DAILY Qty: 18 RF: 0 oxycodone 5 mg tablet 5 mg PO Q6H PRN (Reason: pain) Qty: 10 RF: 0 Continued allopurinol 300 mg tablet 300 mg PO DAILY RF: 0 amitriptyline 25 mg tablet 25 mg PO QHS RF: 0 omeprazole 20 mg capsule,delayed release(DR/EC) 20 mg PO DAILY RF: 0 Discharge Instructions Instructions: Gout (ED) Additional Instructions: you can take 1000mg tylenol every 6 hours for pain as needed follow up with your primary care provider within 1-2 weeks if symptoms continue If you feel you are worsening, have redness spreading up or down the leg or high fevers return to the emergency department Medical Decision Making 42 yo male who has a hx of gout comes in with chief complaint of left knee pain and redness starting 5 hours ago. Denies trauma. Has a hx of gout and states that this feel very similar to this. He has no significant swelling of the joint, has redness of anterior knee, is able to flex to about 30 degrees before limited by pain. No leg swelling or calf pain to suggest dvt. Given hx of gout and no fevers and acute onset of the pain doubt septic joint at this time. Will give him tylenol and steroids (he states he can't take nsaids due to bleeding and colchicine never works for him) pt feels better, no change in exam and no increase in redness. Will start a prednisone taper and advised f/u with his pcp within 1-2 weeks and return precautions given Differential Diagnosis gout, bursitis, septic joint HPI General Mode of arrival: ambulatory. Date/Time Provider Initiated Documentation: 05/26/18 20:06. Limitations to Documentation: no limitations. Information obtained by: patient. History of Present Illness 42 year old M presents to the emergency department with the chief complaint of left knee pain, described as severe, with intensity rated at 8. Quality is described as aching, and is localized to the right and lower extremity. Patient reports no radiation. Patient started experiencing this hour(s) (5) and it has been constant. Rest improves symptom(s), Movement worsens symptoms . Patient notes no other symptoms.. Patient did receive the following treatments prior to arrival, none Related Data Home Medications Medication Instructions Recorded Confirmed allopurinol 300 mg tablet 300 mg PO DAILY 05/18/18 05/26/18 amitriptyline 25 mg tablet 25 mg PO QHS 05/18/18 05/26/18 omeprazole 20 mg capsule,delayed 20 mg PO DAILY 05/18/18 05/26/18 release oxycodone 5 mg PO Q6H PRN #10 tab 05/26/18 prednisone 20 mg PO DAILY #18 tab 05/26/18 Previous Rx's Medication Instructions Recorded oxycodone 5 mg PO Q6H PRN #10 tab 05/26/18 prednisone 20 mg PO DAILY #18 tab 05/26/18 Allergies Allergy/AdvReac Type Severity Reaction Status Date / Time povidone-iodine Allergy Skin Rash Unverified 05/26/18 20:05 [From Betadine] soap [From Betadine] Allergy Skin Rash Unverified 05/26/18 20:05 adhesive AdvReac Mild unknown Verified 05/26/18 20:05 General Stated Complaint: Orthopedic MAZIN: 3 Review of Systems Review of Systems All systems reviewed & are unremarkable except as noted in HPI and below Constitutional Denies chills and Denies fever(s) ENT Denies change in voice Cardiovascular Denies chest pain and Denies dyspnea Respiratory Denies cough and Denies dyspnea Gastrointestinal Denies abdominal pain, Denies nausea and Denies vomiting [facility] Medical History Back pain (Chronic) Gout (Chronic) Social History Smoking and Tabacco status: Current every day Exam Const General: no acute distress Orientation: alert [facility] Head: normal to inspection Ears: external ears normal General nose exam: external nose normal Mouth: moist mucous membranes Eyes General: appearance normal, both eyes and all related structures Neck Neck: normal visual inspection Resp Effort & Inspection: normal respiratory effort and able to speak in complete sentences Cardio Rate: regular rate Skin General skin exam: no rashes or lesions noted Neuro General: alert and oriented x3 Extrem General: normal capillary refill Psych Mental Status: mental status grossly normal Course Vital Signs Temperature 36.2 C L 03/13/19 19:59 Pulse 120 H 05/26/18 19:59 Blood Pressure 130/98 H 05/26/18 19:59 Pulse Oximetry 96 05/26/18 19:59 Temperature 36.2 C L 05/26/18 19:59 Temperature Source Skin 05/26/18 19:59 Pulse 120 H 05/26/18 19:59 Respiratory Effort 05/26/18 20:02 Blood Pressure 130/98 H 05/26/18 19:59 Pulse Oximetry 96 05/26/18 19:59 Oxygen Delivery Method Room Air 05/26/18 19:59 Oxygen Flow Rate 0 05/26/18 19:59 Pain Level 8 05/26/18 20:04
[2018-05-26] MEDS: Acetaminophen 500 MG TAB 1000 MG PO (20:15)
[2018-05-26] MEDS: predniSONE 20 MG TAB 60 MG PO (20:15)
--- NOTE | 2018-05-26 20:15 | ED.GENADUL_ITS ---
Discharge Plan Disposition Patient Disposition: HOME Condition: Stable Discharge Details Chief Complaint: Orthopedic Clinical Impression: Gout attack Primary Care Provider: David Watkins ED Provider: Mike Flowers Home Meds and New Rx's Prescriptions: New prednisone 20 mg tablet 20 mg PO DAILY Qty: 18 RF: 0 oxycodone 5 mg tablet 5 mg PO Q6H PRN (Reason: pain) Qty: 10 RF: 0 Continued allopurinol 300 mg tablet 300 mg PO DAILY RF: 0 amitriptyline 25 mg tablet 25 mg PO QHS RF: 0 omeprazole 20 mg capsule,delayed release(DR/EC) 20 mg PO DAILY RF: 0 Discharge Instructions Instructions: Gout (ED) Additional Instructions: you can take 1000mg tylenol every 6 hours for pain as needed follow up with your primary care provider within 1-2 weeks if symptoms continue If you feel you are worsening, have redness spreading up or down the leg or high fevers return to the emergency department Medical Decision Making 42 yo male who has a hx of gout comes in with chief complaint of left knee pain and redness starting 5 hours ago. Denies trauma. Has a hx of gout and states that this feel very similar to this. He has no significant swelling of the joint, has redness of anterior knee, is able to flex to about 30 degrees before limited by pain. No leg swelling or calf pain to suggest dvt. Given hx of gout and no fevers and acute onset of the pain doubt septic joint at this time. Will give him tylenol and steroids (he states he can't take nsaids due to bleeding and colchicine never works for him) pt feels better, no change in exam and no increase in redness. Will start a prednisone taper and advised f/u with his pcp within 1-2 weeks and return precautions given Differential Diagnosis gout, bursitis, septic joint HPI General Mode of arrival: ambulatory . Date/Time Provider Initiated Documentation: 05/26/18 20:06 . Limitations to Documentation: no limitations . Information obtained by: patient . History of Present Illness 42 year old M presents to the emergency department with the chief complaint of left knee pain, described as severe, with intensity rated at 8. Quality is described as aching, and is localized to the right and lower extremity. Patient reports no radiation. Patient started experiencing this hour(s) (5) and it has been constant. Rest improves symptom(s), Movement worsens symptoms . Patient notes no other symptoms.. Patient did receive the following treatments prior to arrival, none Related Data Home Medications Medication Instructions Recorded Confirmed allopurinol 300 mg tablet 300 mg PO DAILY 05/18/18 05/26/18 amitriptyline 25 mg tablet 25 mg PO QHS 05/18/18 05/26/18 omeprazole 20 mg capsule,delayed 20 mg PO DAILY 05/18/18 05/26/18 release oxycodone 5 mg PO Q6H PRN #10 tab 05/26/18 prednisone 20 mg PO DAILY #18 tab 05/26/18 Previous Rx's Medication Instructions Recorded oxycodone 5 mg PO Q6H PRN #10 tab 05/26/18 prednisone 20 mg PO DAILY #18 tab 05/26/18 Allergies Allergy/AdvReac Type Severity Reaction Status Date / Time povidone-iodine Allergy Skin Rash Unverified 05/26/18 20:05 [From Betadine] soap [From Betadine] Allergy Skin Rash Unverified 05/26/18 20:05 adhesive AdvReac Mild unknown Verified 05/26/18 20:05 General Stated Complaint: Orthopedic MAZIN: 3 Review of Systems Review of Systems All systems reviewed & are unremarkable except as noted in HPI and below Constitutional Denies chills and Denies fever(s) ENT Denies change in voice Cardiovascular Denies chest pain and Denies dyspnea Respiratory Denies cough and Denies dyspnea Gastrointestinal Denies abdominal pain, Denies nausea and Denies vomiting [facility] Medical History Back pain (Chronic) Gout (Chronic) Social History Smoking and Tabacco status: Current every day Exam Const General: no acute distress Orientation: alert [facility] Head: normal to inspection Ears: external ears normal General nose exam: external nose normal Mouth: moist mucous membranes Eyes General: appearance normal, both eyes and all related structures Neck Neck: normal visual inspection Resp Effort & Inspection: normal respiratory effort and able to speak in complete sentences Cardio Rate: regular rate Skin General skin exam: no rashes or lesions noted Neuro General: alert and oriented x3 Extrem General: normal capillary refill Psych Mental Status: mental status grossly normal Course Vital Signs Temperature 36.2 C L 03/13/19 19:59 Pulse 120 H 05/26/18 19:59 Blood Pressure 130/98 H 05/26/18 19:59 Pulse Oximetry 96 05/26/18 19:59 Temperature 36.2 C L 05/26/18 19:59 Temperature Source Skin 05/26/18 19:59 Pulse 120 H 05/26/18 19:59 Respiratory Effort 05/26/18 20:02 Blood Pressure 130/98 H 05/26/18 19:59 Pulse Oximetry 96 05/26/18 19:59 Oxygen Delivery Method Room Air 05/26/18 19:59 Oxygen Flow Rate 0 05/26/18 19:59 Pain Level 8 05/26/18 20:04
[2018-05-26] MEDS: oxyCODONE 5 MG TAB 10 MG PO (20:41)
[2018-05-26 20:45] VITALS: BP 130/98; PULSE 120; RESP 20; TEMP 36.2; O2SAT 96
== END 2018-05-26 20:50 | disposition home or self-care (01) ==
PROVIDERS: Emergency Provider Emergency Medicine; PCP Nurse Practitioner Family
DX: M10.062 Idiopathic gout, left knee (principal)
CPT/HCPCS: 99283; J7512

== ENCOUNTER → 2018-05-28 07:16 | Outpatient (BNVA) | payer MEDICARE, MEDICAID, SELFPAY | PROVIDERS: PCP Nurse Practitioner Family; Referring Provider Nurse Practitioner Family; Visit Provider Surgery | DX: R10.10 Upper abdominal pain, unspecified (principal); M10.9 Gout, unspecified | CPT/HCPCS: 99203; 99214 ==

== ENCOUNTER 2018-05-28 08:12 | Outpatient (CLI) | payer MEDICARE, MEDICAID, SELFPAY ==
[2018-05-28 08:33] LABS: Abs Immature Grans 0.08 k/cumm (0.0-0.09); Absolute Basophil Count 0.02 k/cumm (0.0-0.2); Absolute Eosinophil Count 0.01 k/cumm (0.0-0.7); Absolute Monocyte Count 0.55 k/cumm (0.11-0.7); Basophils % 0.2; Eosinophils % 0.1; HCT 41.4 % (40.0-50.0); HGB 13.7 g/dL (13.5-17.5); Immature Grans % 0.7; Lymphocytes % 15.5; Mean Corp. HGB Concentration 33.1 g/dL (32.0-36.0); Mean Corpuscular Hemoglobin 31.2 pg (27.0-33.0); Mean Corpuscular Volume 94.3 fL (80-95); Mean Platelet Volume 9.2 fL (8.0-11.0); Monocytes % 4.5; Platelet Count 386 x1000/uL (130-400); RBC 4.39 m/cumm (4.50-6.00); RBC Distribution Width 12.5 % (11.8-14.1); White Blood Cell Count 12.23 k/cumm (4.4-10.8)
[2018-05-28 08:38] LABS: Absolute Neutrophil Count 9.66 k/cumm (1.2-6.7)
[2018-05-28 09:34] LABS: C-Reactive Protein 2.31 mg/dL (0.0-0.3)
[2018-05-28 09:39] LABS: ESR 49 MM/HR (0-15)
[2018-05-31 09:51] LABS: Rheumatoid Factor <8 IU/mL (<12.5)
== END 2018-05-28 08:32 ==
PROVIDERS: PCP Nurse Practitioner Family; Visit Provider Surgery
DX: M10.9 Gout, unspecified (principal); M25.40 Effusion, unspecified joint; R10.10 Upper abdominal pain, unspecified
CPT/HCPCS: 36415; 85652; 99203; 99214; 85025; 86140; 86431

== ENCOUNTER → 2018-07-06 07:32 | Outpatient (BNVA) | payer MEDICARE, MEDICAID, SELFPAY | PROVIDERS: PCP Nurse Practitioner Family; Referring Provider Nurse Practitioner Family; Visit Provider Surgery | DX: R69 Illness, unspecified (principal) ==

== ENCOUNTER 2018-08-05 05:47 | Emergency (ER) | payer MEDICARE, MEDICAID, SELFPAY ==
[2018-08-05 05:56] VITALS: BP 153/115; PULSE 105; RESP 20; TEMP 37; O2SAT 95
--- NOTE | 2018-08-05 06:07 | ED.GENADUL_ITS ---
Discharge Plan Disposition Patient Disposition: HOME Condition: Improving Discharge Details Chief Complaint: Cellulitis Clinical Impression: Gout, Pain and swelling of left ankle Primary Care Provider: David Watkins ED Provider: Simran Majano Home Meds and New Rx's Prescriptions: New prednisone 20 mg tablet See Rx Instructions .ROUTE .COMPLEX Qty: 18 RF: 0 Continued allopurinol 300 mg tablet 300 mg PO DAILY RF: 0 amitriptyline 25 mg tablet 25 mg PO QHS RF: 0 omeprazole 20 mg capsule,delayed release(DR/EC) 20 mg PO DAILY RF: 0 bisacodyl [Dulcolax (bisacodyl)] 5 mg tablet,delayed release (DR/EC) 5 mg PO ONCE Qty: 4 RF: 0 polyethylene glycol 3350 17 gram powder in packet 255 g PO DAILY Qty: 15 RF: 0 Discharge Instructions Instructions: Gout (ED) Additional Instructions: Take the steroids as directed until finished. Call your primary care doctor today to schedule a follow-up appointment for reevaluation within the next week. Return immediately to the emergency department with any worsening or new concerning symptoms such as fever, increased pain, redness or swelling. Discharge Data Discharge Date/Time-TO BE ENTERED AT DEPARTURE: 08/05/18 11:03 Discharge Physician: Simran Majano Medical Decision Making <Kailash Rosales MD - Last Filed: 08/11/18 20:28> This is likely recurrent gout, however, he should not have swelling all the way up to the knee. I did not think that he has a septic joint. He has migratory symptoms and has previously documented gout by aspiration per him. We will will place IV and check laboratory studies. He needs an ultrasound of the left lower extremity. Will give Toradol and morphine for his pain as well as start prednisone for presumed gout. Patient will be signed over to Dr. Majano oncoming physician only to follow-up on laboratory studies and imaging and reassess patient. <Simran Majano DO - Last Filed: 08/05/18 11:41> Please see Dr. Rosales's note for initial presentation, exam and plan. 42-year-old male with a history of gout who presents with left ankle redness and swelling for the past 6 weeks, getting progressively worse with increased swelling and redness of his left leg over the past few days and much worse since last night. Patient admits to a history of gout in his left knee but denies any previous history in his left ankle. States he was on steroids 1 month ago for his left knee gout. Patient does not like colchicine due to side effects. Per Dr. Rosales's assessment, appears likely more consistent with gout rather than cellulitis, but was referred for labs and Doppler ultrasound to rule out DVT. He was given Toradol, morphine and prednisone. Labs reviewed and note a white blood cell count of 11, ESR 37, CRP 7.59. I added a lactate which was normal at 0.9 and uric acid slightly high at 8. Dopp ler ultrasound negative for DVT but did note a 4 cm left groin lymph node. Upon my assessment, patient's left leg erythema completely resolved and now remaining with left lateral and medial ankle erythema and edema. Neurovascularly intact. Left groin nontender without evidence of infection. Discussed with patient that as his symptoms improved with steroids quickly, and with main symptoms present in the ankle, does appear consistent with gout considering his previous history. At this point in time, do not feel like his presentation is consistent with cellulitis and will hold on antibiotics. Patient would rather steroids for his gout. We will send home with a prescription for prednisone. He is instructed to call his primary care doctor for reevaluation and for referral to rheumatology for additional management. He is instructed to return here immediately with any worsening or new concerning symptoms such as fever or spreading erythema. Medical Records Medical records reviewed: Yes I reviewed the patient's medical records. Imaging Data Radiologic Study: Radiologist's impression: LEFT LOWER EXTREMITY ULTRASOUND: There is no evidence of DVT. Note is made of a 4.5 by 2.7 by 1.1 cm. left groin lymph node which contains some central fluid. The cortex is intact. SUMMARY: No evidence of DVT. An enlarged left groin lymph node is apparent. Lab Data Lab results reviewed: Yes I reviewed the patient's lab results. Laboratory Tests Range/Units 08/05/18 08/05/18 08/05/18 06:20 06:20 06:20 WBC (4.4-10.8) k/cumm 11.12 H RBC (4.50-6.00) m/cumm 4.46 L Hgb (13.5-17.5) g/dL 13.7 Hct (40.0-50.0) % 40.2 MCV (80-95) fL 90.1 MCH (27.0-33.0) pg 30.7 MCHC (32.0-36.0) g/dL 34.1 RDW (11.8-14.1) % 13.4 Plt Count (130-400) x1000/uL 309 MPV (8.0-11.0) fL 10.1 Immature Gran % 0.3 Neutrophils % 69.3 Lymphocytes % 20.0 Monocytes % 9.4 Eosinophils % 0.6 Basophils % 0.4 Absolute Neutrophils (1.2-6.7) k/cumm 7.71 H Absolute Lymphocytes (1.2-3.4) k/cumm 2.22 Absolute Monocytes (0.11-0.7) k/cumm 1.05 H Absolute Eosinophils (0.0-0.7) k/cumm 0.07 Absolute Basophils (0.0-0.2) k/cumm 0.04 ESR (0-15) MM/HR 37 H Sodium (136-145) mmol/L 133 L Potassium (3.5-5.1) mmol/L 3.7 Chloride (98-107) mmol/L 95 L Carbon Dioxide (21.0-32.0) mmol/L 24.4 Anion Gap (3-11) mmol/L 13.6 H BUN (7-18) mg/dL 8 Creatinine (0.70-1.30) mg/dL 0.85 Estimated GFR/1.73 m2 (mL/min/1.73m2) >= 60.00 Glucose (70-100) mg/dL 99 Lactate (0.6-1.4) mmol/l Uric Acid (3.5-7.2) mg/dL 8.0 H Calcium (8.5-10.1) mg/dL 9.5 C-Reactive Protein (0.0-0.3) mg/dL 7.59 H Range/Units 08/05/18 07:30 WBC (4.4-10.8) k/cumm RBC (4.50-6.00) m/cumm Hgb (13.5-17.5) g/dL Hct (40.0-50.0) % MCV (80-95) fL MCH (27.0-33.0) pg MCHC (32.0-36.0) g/dL RDW (11.8-14.1) % Plt Count (130-400) x1000/uL MPV (8.0-11.0) fL Immature Gran % Neutrophils % Lymphocytes % Monocytes % Eosinophils % Basophils % Absolute Neutrophils (1.2-6.7) k/cumm Absolute Lymphocytes (1.2-3.4) k/cumm Absolute Monocytes (0.11-0.7) k/cumm Absolute Eosinophils (0.0-0.7) k/cumm Absolute Basophils (0.0-0.2) k/cumm ESR (0-15) MM/HR Sodium (136-145) mmol/L Potassium (3.5-5.1) mmol/L Chloride (98-107) mmol/L Carbon Dioxide (21.0-32.0) mmol/L Anion Gap (3-11) mmol/L BUN (7-18) mg/dL Creatinine (0.70-1.30) mg/dL Estimated GFR/1.73 m2 (mL/min/1.73m2) Glucose (70-100) mg/dL Lactate (0.6-1.4) mmol/l 0.9 Uric Acid (3.5-7.2) mg/dL Calcium (8.5-10.1) mg/dL C-Reactive Protein (0.0-0.3) mg/dL HPI <Kailash Rosales MD - Last Filed: 08/11/18 20:28> General Mode of arrival: ambulatory . Date/Time Provider Initiated Documentation: 08/05/18 06:02 . Limitations to Documentation: no limitations . Information obtained by: patient, RN notes reviewed and old records reviewed . HPI Narrative: Patient presents to ED with left lower extremity pain and swelling. He has been dealing with presumed gout of the left knee. That actually seems better. Over the last 24 hours he is developed pain and swelling in the left ankle which is now progressed into the left leg. He denies fevers or chills. He denies difficulty breathing. He has no history of DVTs. He does have gout that has been previously diagnosed by joint aspiration. Currently does not really feel like any other joints are involved. Typically gets it in his ankles and feet. The left knee has just finally cleared up. He is not currently on steroids. He does take his allopurinol. Related Data Home Medications Medication Instructions Recorded Confirmed allopurinol 300 mg tablet 300 mg PO DAILY 05/18/18 08/05/18 amitriptyline 25 mg tablet 25 mg PO QHS 05/18/18 08/05/18 omeprazole 20 mg capsule,delayed 20 mg PO DAILY 05/18/18 08/05/18 release bisacodyl 5 mg tablet,delayed 5 mg PO ONCE #4 tab 05/28/18 08/05/18 release polyethylene glycol 3350 17 gram 255 g PO DAILY #15 each 05/28/18 08/05/18 oral powder packet prednisone See Rx Instructions .ROUTE 08/05/18 .COMPLEX #18 tab Previous Rx's Medication Instructions Recorded bisacodyl 5 mg tablet,delayed 5 mg PO ONCE #4 tab 05/28/18 release polyethylene glycol 3350 17 gram 255 g PO DAILY #15 each 05/28/18 oral powder packet prednisone See Rx Instructions .ROUTE 08/05/18 .COMPLEX #18 tab Allergies Allergy/AdvReac Type Severity Reaction Status Date / Time ciprofloxacin [From Cipro] Allergy Intermediate Unverified 05/31/18 15:27 povidone-iodine Allergy Skin Rash Unverified 05/28/18 07:24 [From Betadine] soap [From Betadine] Allergy Skin Rash Unverified 05/28/18 07:24 adhesive AdvReac Mild unknown Verified 05/28/18 07:24 General Stated Complaint: Cellulitis MAZIN: 3 Review of Systems <Kailash Rosales MD - Last Filed: 08/11/18 20:28> Review of Systems As documented in HPI otherwise negative as below. Const: no fever, chills, weakness Resp: no cough, SOB, pleuritic pain CV: no CP, diaphoresis, syncope GI: no abdominal pain, nausea, vomiting, diarrhea Neuro: no headache, numbness, focal weakness, confusion PFSH <Kailash Rosales MD - Last Filed: 08/11/18 20:28> Medical History Back pain (Chronic) GERD (gastroesophageal reflux disease) (Chronic) Gout (Chronic) Surgical History S/P ventral herniorrhaphy (Acute) Social History Smoking/Tobacco Use Status: Former Tobacco Use Quit Date: 04/16/18 Quit status: quit date established Alcohol Intake: never Drug use: Occasionally Substance use type: marijuana Household members: none Do you feel safe at home: Yes Do you feel safe in your relationship?: Yes Exam <Kailash Rosales MD - Last Filed: 08/11/18 20:28> Narrative Exam Narrative: Vitals: Afebrile. Mildly tachycardic and hypertensive. Const: Obese male in NAD. HEENT: NC/AT. Normal facial exam. Eyes: Normal conjunctiva and sclera. Neck: Supple. Trachea midline. Lungs: Normal respiratory effort. Lungs are clear. Cor: RRR without murmur/gallop. Neuro: A+O x 3. CN grossly in tact. Good strength and no focal deficit. Ext: Left ankle markedly swollen, warm and without ROM due to pain. LLE with 2+ pitting edema up to knee. Other joints/extremities unremarkable at this point. Skin: Warm and dry. Erythema mild around left ankle. Course <Kailash Rosales MD - Last Filed: 08/11/18 20:28> Vital Signs Temperature 98.6 F 08/05/18 05:56 Pulse 105 H 08/05/18 05:56 Respiratory Rate 20 08/05/18 05:56 Blood Pressure 153/115 H 08/05/18 05:56 Pulse Oximetry 95 08/05/18 05:56 Temperature 98.6 F 08/05/18 05:56 Temperature Source Temporal Artery Scan 08/05/18 05:56 Pulse 105 H 08/05/18 05:56 Respiratory Rate 20 08/05/18 05:56 Respiratory Effort 08/05/18 05:56 Blood Pressure 153/115 H 08/05/18 05:56 Pulse Oximetry 95 08/05/18 05:56 Oxygen Delivery Method Room Air 08/05/18 05:56 Oxygen Flow Rate 0 08/05/18 05:56 Pain Level 8 08/05/18 05:56
--- NOTE | 2018-08-05 06:16 | DI.US_ITS ---
SYMPTOM/DIAGNOSIS: SWELLING LLE LEFT LOWER EXTREMITY ULTRASOUND: There is no evidence of DVT. Note is made of a 4.5 by 2.7 by 1.1 cm. left groin lymph node which contains some central fluid. The cortex is intact. SUMMARY: No evidence of DVT. An enlarged left groin lymph node is apparent.
[2018-08-05] MEDS: predniSONE 20 MG TAB 60 MG PO (06:31)
[2018-08-05] MEDS: Ketorolac 30 MG/ML VIAL IVP (06:32)
[2018-08-05] MEDS: Normal Saline Flush 10 ML SYR IVP (06:33)
[2018-08-05 06:52] LABS: Abs Immature Grans 0.03 k/cumm (0.0-0.09); Absolute Eosinophil Count 0.07 k/cumm (0.0-0.7); Absolute Lymphocyte Count 2.22 k/cumm (1.2-3.4); Absolute Monocyte Count 1.05 k/cumm (0.11-0.7); Basophils % 0.4; Eosinophils % 0.6; HCT 40.2 % (40.0-50.0); HGB 13.7 g/dL (13.5-17.5); Immature Grans % 0.3; Mean Corp. HGB Concentration 34.1 g/dL (32.0-36.0); Mean Corpuscular Hemoglobin 30.7 pg (27.0-33.0); Mean Corpuscular Volume 90.1 fL (80-95); Mean Platelet Volume 10.1 fL (8.0-11.0); Monocytes % 9.4; Neutrophils % 69.3; Platelet Count 309 x1000/uL (130-400); RBC 4.46 m/cumm (4.50-6.00); RBC Distribution Width 13.4 % (11.8-14.1); White Blood Cell Count 11.12 k/cumm (4.4-10.8)
[2018-08-05 06:55] LABS: Absolute Basophil Count 0.04 k/cumm (0.0-0.2); Absolute Neutrophil Count 7.71 k/cumm (1.2-6.7)
[2018-08-05 07:01] LABS: Calcium 9.5 mg/dL (8.5-10.1); Glucose 99 mg/dL (70-100)
[2018-08-05 07:02] LABS: Anion Gap 13.6 mmol/L (3-11); BUN 8 mg/dL (7-18); C-Reactive Protein 7.59 mg/dL (0.0-0.3); CO2 24.4 mmol/L (21.0-32.0); CREATININE 0.85 mg/dL (0.70-1.30); Chloride 95 mmol/L (98-107); Potassium 3.7 mmol/L (3.5-5.1); Sodium 133 mmol/L (136-145)
[2018-08-05 07:51] LABS: Lactate-non-spesis 0.9 mmol/l (0.6-1.4)
[2018-08-05 08:44] LABS: ESR 37 MM/HR (0-15)
[2018-08-05 11:00] VITALS: BP 153/115; PULSE 105; RESP 20; TEMP 37; O2SAT 95
== END 2018-08-05 11:03 | disposition home or self-care (01) ==
PROVIDERS: Emergency Medicine; Emergency Provider Physician Assistant; PCP Nurse Practitioner Family
DX: M10.072 Idiopathic gout, left ankle and foot (principal)
CPT/HCPCS: 36415; 80048; 85652; 96374; 96375; 99284; 83605; 84550; 85025; 86140; 93971; J1885; J7512

== ENCOUNTER 2019-02-19 16:23 | Emergency (ER) | payer MEDICARE, MEDICAID, SELFPAY ==
[2019-02-19 16:31] VITALS: BP 169/103; PULSE 112; RESP 18; TEMP 37; O2SAT 97
--- NOTE | 2019-02-19 16:32 | W.ED.GENAD ---
Discharge Plan Disposition Patient Disposition: HOME Condition: Stable Discharge Details Chief Complaint: Orthopedic Clinical Impression: Foot pain, right, Gout Primary Care Provider: David Watkins ED Provider: Simran Majano Home Meds and New Rx's Prescriptions: New prednisone 20 mg tablet See Rx Instructions .ROUTE .COMPLEX Qty: 12 RF: 0 Continued allopurinol 300 mg tablet 300 mg PO DAILY RF: 0 amitriptyline 25 mg tablet 25 mg PO QHS RF: 0 omeprazole 20 mg capsule,delayed release(DR/EC) 20 mg PO DAILY RF: 0 Discharge Instructions Instructions: Gout (ED) Additional Instructions: Alternate Tylenol and Motrin as needed and directed for pain. Take the oxycodone for pain not relieved with Tylenol or Motrin. Take the steroids until finished. Rest and elevate your right foot as much as possible. You will receive a call from care management regarding a follow-up appointment with a primary care doctor within the next week. Follow-up with Dr. Azul for reevaluation. Return to the emergency department if you develop any worsening or new concerning symptoms such as fever, worsening pain, redness or swelling. Referrals: Sven Azul DPM [[facility] STAFF PHYSICIAN] - Discharge Data Discharge Physician: Simran Majano Medical Decision Making 43yo M with a history of gout presents with right foot pain similar with previous gout attack for the past 2 days. Denies any fever or known injury. BP hypertensive. Patient has a history of hypertension but does not take medication. Heart rate initially 110s which appeared to be due to pain and then improved to 90s. Afebrile. Right foot minimally erythematous, moderately edematous and significantly tender extending from dorsal midfoot to right first MTP joint. No lesions or rash. No open wounds. Does not appear consistent with cellulitis. Patient denies any history of injury and no obvious signs of trauma so do not see an indication for an x-ray and he is agreeable. Location and symptoms appear consistent likely with gout. Given 1 dose of prednisone and oxycodone here as well as prescription for prednisone for home and oxycodone to go. He was placed on care management list to arrange for a follow-up appointment to establish care and for follow-up for gout. He has seen Dr. Azul in the past and was advised to follow-up with him for reevaluation. He was advised to return here with any worsening symptoms. Medical Records Medical records reviewed: Yes I reviewed the patient's medical records. HPI General Mode of arrival: ambulatory. Date/Time Provider Initiated Documentation: 02/19/19 16:31. Limitations to Documentation: no limitations. Information obtained by: patient. History of Present Illness 43 year old M presents to the emergency department with the chief complaint of R foot pain , described as moderate, Quality is described as aching, and is localized to the lower extremity (R foot ). Patient started experiencing this day(s) (2) and it has been constant. No relieving factors improve symptom(s), Movement worsens symptoms . Patient notes denies diaphoresis, fever/chills, headaches, loss of appetite, malaise, nausea/vomiting, rash, seizure, shortness of breath, syncope and weakness. Patient did receive the following treatments prior to arrival, none Related Data Home Medications Medication Instructions Recorded Confirmed allopurinol 300 mg tablet 300 mg PO DAILY 05/18/18 08/05/18 amitriptyline 25 mg tablet 25 mg PO QHS 05/18/18 08/05/18 omeprazole 20 mg capsule,delayed 20 mg PO DAILY 05/18/18 08/05/18 release prednisone See Rx Instructions .ROUTE 02/19/19 .COMPLEX #12 tab Previous Rx's Medication Instructions Recorded prednisone See Rx Instructions .ROUTE 02/19/19 .COMPLEX #12 tab Allergies Allergy/AdvReac Type Severity Reaction Status Date / Time ciprofloxacin [From Cipro] Allergy Intermediate Unverified 02/19/19 16:36 povidone-iodine Allergy Skin Rash Unverified 02/19/19 16:36 [From Betadine] soap [From Betadine] Allergy Skin Rash Unverified 02/19/19 16:36 adhesive AdvReac Mild unknown Verified 02/19/19 16:36 General MAZIN: 3 Review of Systems All systems reviewed & are unremarkable except as noted in HPI and below Constitutional Constitutional: Reports as per HPI, Denies chills and Denies fever(s) Eyes Eyes: Denies blurry vision ENT Ears, Nose, Mouth, and Throat: Denies dizziness, Denies sore throat and Denies throat swelling Cardiovascular Cardiovascular: Denies chest pain and Denies dyspnea Respiratory Respiratory: Denies cough and Denies dyspnea Gastrointestinal Gastrointestinal: Denies abdominal pain, Denies diarrhea and Denies vomiting Genitourinary Genitourinary: Denies hematuria and Denies dysuria Musculoskeletal Musculoskeletal: Denies back pain and Denies numbness Comments: R foot pain Integumentary/Breasts Skin/Breast: Denies lesions and Denies rash Neurologic Neurologic: Denies dizziness, Denies focal weakness and Denies numbness Allergic/Immunologic Allergic/Immunologic: Denies throat swelling [facility] Medical History Back pain (Chronic) GERD (gastroesophageal reflux disease) (Chronic) Gout (Chronic) Surgical History S/P ventral herniorrhaphy (Acute) Family History Father Heart disease Mother COPD (chronic obstructive pulmonary disease) Social History Smoking/Tobacco Use Status: Current-Occasional Tobacco Type: smokeless tobacco Quit status: quit date established Alcohol Intake: never Drug use: Occasionally Substance use type: marijuana Household members: none Do you feel safe at home: Yes Exam Const General: cooperative, healthy appearing and no acute distress HENMT Head: normal to inspection Mouth: oral mucosae normal Eyes General: appearance normal, both eyes and all related structures Neck Neck: normal visual inspection Resp Effort & Inspection: normal respiratory effort and able to speak in complete sentences Cardio Rate: regular rate Skin General skin exam: no rashes or lesions noted Neuro General: alert, awake and oriented x3 Motor: muscle tone normal throughout Extrem Ankle/foot/toe images: 1. Minimal erythema, moderate edema, and significant tenderness to palpation overlying dorsal right midfoot and right first MTP joint. There is no crepitus, ecchymosis, open wounds, rash or lesions. Other: Right DP/PT pulses intact. Psych Appearance: grossly normal Affect: normal affect
[2019-02-19] MEDS: predniSONE 20 MG TAB (17:18)
[2019-02-19] MEDS: oxyCODONE 5 MG TAB (17:19)
[2019-02-19 17:45] VITALS: BP 181/98; PULSE 94; RESP 20; TEMP 37; O2SAT 98
== END 2019-02-19 17:45 | disposition home or self-care (01) ==
PROVIDERS: Emergency Provider Physician Assistant; PCP Nurse Practitioner Family
DX: M10.9 Gout, unspecified (principal); M25.571 Pain in right ankle and joints of right foot; I10 Essential (primary) hypertension
CPT/HCPCS: 36415; 99283; J7512

== ENCOUNTER 2019-04-05 12:02 | Emergency (ER) | payer MEDICARE, MEDICAID, SELFPAY ==
[2019-04-05 12:06] VITALS: BP 160/96; PULSE 89; RESP 20; TEMP 37.4; O2SAT 95
--- NOTE | 2019-04-05 12:40 | W.ED.GENAD ---
Discharge Plan Disposition Patient Disposition: HOME Condition: Stable Discharge Details Chief Complaint: Orthopedic Clinical Impression: Gout attack Primary Care Provider: David Watkins ED Provider: Felisha Kwon Home Meds and New Rx's Prescriptions: New prednisone 20 mg tablet 60 mg PO DAILY 5 Days Qty: 15 RF: 0 indomethacin submicronized 20 mg capsule 20 mg PO TID 7 Days Qty: 21 RF: 0 Discharge Instructions Instructions: Gout (ED) Additional Instructions: Follow up with primary care provider in 3-5 days. Return to ED sooner if any worsening or concerns. Take medications as directed. Use sling as needed for comfort. Return to ED for any fever, chills worsening swelling worsening redness or any worsening inability to move extremity. Care management will contact you to assist you with establishing a primary care provider. Medical Decision Making 1244: 43-year-old male presents with right elbow swelling and tenderness decreased range of motion. Onset was this morning. No known injuries. Does have a history of gout. Labs ordered including CBC CMP and a uric acid to rule out infective pathology. X-rays of elbow also ordered. Patient given morphine 2 mg as needed pain. 1342: EXAM: XR ELBOW RT COMPLETE CLINICAL HISTORY: Elbow swelling and pain TECHNIQUE: COMPARISON: LEFT ELBOW COMPLETE from 11/01/2011 FINDINGS: Four views were obtained. Old deformity of the distal radial diaphysis noted. There is no evidence of an elbow joint effusion or hemarthrosis. No fracture is seen. IMPRESSION: Ordered By: Felisha Kwon Uric acid is elevated at 10 WBC's slightly elevated at 12.9. No tachycardia, no fever. Patient continues to have pain. Received 4 mg total of morphine IV department. Will discharge with a presumptive diagnosis of gouty arthritis and give prescription for indomethacin and Prednisone stent x 5 days. Sling provided to patient in department. Discussed with patient red flags of any worsening to return to ED, verbalized understanding. HPI General Date/Time Provider Initiated Documentation: 04/05/19 12:04. Limitations to Documentation: no limitations. Information obtained by: patient. HPI Narrative: 43-year-old male presents with right elbow swelling and tenderness which began this morning. Patient states no known injury but was doing some snowblowing yesterday. Denies fever or chills. At this time he is unable to extend elbow fully. He does have a history of gout and was taking allopurinol on a daily basis but has not been taking any medications due to no PCP. Related Data Home Medications Medication Instructions Recorded Confirmed indomethacin submicronized 20 mg PO TID 7 Days #21 cap 04/05/19 prednisone 60 mg PO DAILY 5 Days #15 tab 04/05/19 Previous Rx's Medication Instructions Recorded indomethacin submicronized 20 mg PO TID 7 Days #21 cap 04/05/19 prednisone 60 mg PO DAILY 5 Days #15 tab 04/05/19 Allergies Allergy/AdvReac Type Severity Reaction Status Date / Time ciprofloxacin [From Cipro] Allergy Intermediate Unverified 04/05/19 12:18 povidone-iodine Allergy Skin Rash Unverified 04/05/19 12:18 [From Betadine] soap [From Betadine] Allergy Skin Rash Unverified 04/05/19 12:18 ibuprofen AdvReac Intermediate GI Bleeding Unverified 04/05/19 12:27 adhesive AdvReac Mild unknown Verified 04/05/19 12:18 General Stated Complaint: Orthopedic MAZIN: 3 Review of Systems Narrative: Constitutional: Negative for weight loss, alert and oriented, well groomed, normal body habitus, appears uncomfortable. HEENT: Denies trauma, headaches, blurry vision, nasal discharge, sore throat, trouble swallowing. Chest: Denies chest pain, palpitations, irregular rhythm, hypertension. Respiratory: Denies Shortness of breath, cough, hemoptysis. MSK: Right elbow pain and swelling. Decreased ROM. GI: Denies abdominal pain, nausea, vomiting, diarrhea, constipation. : Denies dysuria, hematuria, flank pain, vaginal bleeding, rectal bleeding. Neuro: Denies dizziness, blurry vision, weakness, syncope, headache or facial numbness. Hematologic: Denies easy bruising, intolerance to heat or cold, hair loss. [facility] Medical History Back pain (Chronic) GERD (gastroesophageal reflux disease) (Chronic) Gout (Chronic) Surgical History S/P ventral herniorrhaphy (Acute) Family History Father Heart disease Mother COPD (chronic obstructive pulmonary disease) Social History Smoking/Tobacco Use Status: Current-Occasional Tobacco Type: smokeless tobacco Quit status: quit date established Alcohol Intake: never Drug use: Occasionally Substance use type: marijuana Household members: none Do you feel safe at home: Yes Do you feel safe in your relationship?: Yes Exam Const General: cooperative, healthy appearing and in distress Nutritional Appearance: average body habitus Orientation: alert, awake and oriented x3 Resp Effort & Inspection: normal respiratory effort Auscultation: clear to auscultation bilaterally Cardio Rate: regular rate Rhythm: regular rhythm Heart Sounds: S1 normal and S2 normal Extrem Right upper extremity: normal capillary refill and elbow/forearm Details: abnormal to inspection Details: joint swelling and erythema, tenderness, swelling Location: other (Generalized soft tissue swelling), abnormal ROM (Able to extend approximately 30 degrees) Details: pain with active ROM during and pain with passive ROM during and distal pulses intact Course Vital Signs Vital signs: Vital Signs Temperature 37.4 C 04/05/19 12:06 Pulse 89 04/05/19 12:06 Respiratory Rate 04/05/19 12:06 Blood Pressure 160/96 H 04/05/19 12:06 Pulse Oximetry 95 04/05/19 12:06 Temperature 37.4 C 04/05/19 12:06 Temperature Source Temporal Artery Scan 04/05/19 12:06 Pulse 89 04/05/19 12:06 Respiratory Rate 20 04/05/19 12:06 Respiratory Effort Non-Labored 04/05/19 12:11 Blood Pressure 160/96 H 04/05/19 12:06 Blood Pressure Position Sitting 04/05/19 12:06 Pulse Oximetry 95 04/05/19 12:06 Oxygen Delivery Method Room Air 04/05/19 12:06 Oxygen Flow Rate 0 04/05/19 12:06 Pain Level 10 04/05/19 12:06
[2019-04-05] MEDS: MORPHine 10 MG/ML VIAL 2 MG IVP ×3 (12:48→14:09)
[2019-04-05 12:56] LABS: Abs Immature Grans 0.03 k/cumm (0.0-0.09); Absolute Basophil Count 0.03 k/cumm (0.0-0.2); Absolute Lymphocyte Count 1.15 k/cumm (1.2-3.4); Absolute Monocyte Count 0.41 k/cumm (0.11-0.7); Basophils % 0.2; HCT 45.1 % (40.0-50.0); HGB 15.4 g/dL (13.5-17.5); Immature Grans % 0.2 %; Lymphocytes % 8.9; Mean Corp. HGB Concentration 34.1 g/dL (32.0-36.0); Mean Corpuscular Hemoglobin 31.8 pg (27.0-33.0); Mean Corpuscular Volume 93.2 fL (80-95); Mean Platelet Volume 9.3 fL (8.0-11.0); Monocytes % 3.2; Neutrophils % 87.5; Platelet Count 333 x1000/uL (130-400); RBC 4.84 m/cumm (4.50-6.00); RBC Distribution Width 12.2 % (11.8-14.1)
--- NOTE | 2019-04-05 12:57 | DI.RAD_ITS ---
EXAM: XR ELBOW RT COMPLETE CLINICAL HISTORY: Elbow swelling and pain TECHNIQUE: COMPARISON: LEFT ELBOW COMPLETE from 11/01/2011 FINDINGS: Four views were obtained. Old deformity of the distal radial diaphysis noted. There is no evidence of an elbow joint effusion or hemarthrosis. No fracture is seen. IMPRESSION:
[2019-04-05 12:59] LABS: Absolute Neutrophil Count 11.29 k/cumm (1.2-6.7)
[2019-04-05 13:15] LABS: ALT 49 U/L (16-63); AST 29 U/L (15-37); Albumin 4.4 g/dL (3.4-5.0); Alkaline Phosphatase 51 U/L (46-116); Anion Gap 11.8 mmol/L (3-11); BUN 11 mg/dL (7-18); Bilirubin, Total 0.5 mg/dL (0.2-1.0); CO2 24.2 mmol/L (21.0-32.0); CREATININE 0.73 mg/dL (0.70-1.30); Calcium 9.4 mg/dL (8.5-10.1); Chloride 102 mmol/L (98-107); Glucose 123 mg/dL (74-106); Potassium 4.3 mmol/L (3.5-5.1); Sodium 138 mmol/L (136-145); Total Protein 7.9 g/dL (6.4-8.2); Uric Acid 10.4 mg/dL (3.5-7.2)
[2019-04-05 14:11] VITALS: RESP 18; O2SAT 97
[2019-04-05] MEDS: Ketorolac 15 MG/ML VIAL IVP (14:11)
[2019-04-05] MEDS: predniSONE 20 MG TAB 60 MG PO (14:11)
[2019-04-05 14:16] VITALS: BP 152/89; PULSE 84; RESP 18; TEMP 37.4; O2SAT 97
== END 2019-04-05 14:18 | disposition home or self-care (01) ==
PROVIDERS: Emergency Provider Registered Nurse Emergency; PCP Nurse Practitioner Family
DX: M10.9 Gout, unspecified (principal); Y93.H1 Activity, digging, shoveling and raking
CPT/HCPCS: 80053; 96374; 96375; 96376; 99284; 73080; 84550; 85025; J1885; J2270; J7512

== ENCOUNTER 2019-05-03 08:55 | Emergency (ER) | payer MEDICARE, MEDICAID, SELFPAY ==
[2019-05-03] VITALS (28 sets, daily range): BP systolic 141–164; BP diastolic 81–120; PULSE 69–110; RESP 12–30; TEMP 36.6; O2SAT 93–98
--- NOTE | 2019-05-03 09:00 | DI.RAD_ITS ---
EXAM: XR PORTABLE CHEST AP CLINICAL HISTORY: weakness and back pain. TECHNIQUE: 2D digital imaging was performed. COMPARISON: No exams were available for comparison FINDINGS: LUNGS: Clear. No pleural abnormality seen. HEART: Normal. MEDIASTINUM: Normal. OTHER FINDINGS: None. IMPRESSION: No acute pulmonary findings.
--- NOTE | 2019-05-03 09:04 | W.ED.GENAD ---
Discharge Plan Disposition Patient Disposition: HOME Condition: Improving Discharge Details Chief Complaint: GenMedical Clinical Impression: Hypertension, Back pain, thoracic Primary Care Provider: David Watkins ED Provider: Benjie Morales Home Meds and New Rx's Prescriptions: New amlodipine 5 mg tablet 5 mg PO DAILY Qty: 30 RF: 0 methocarbamol 500 mg tablet 500 mg PO Q6H PRN (Reason: Back pain or spasm) Qty: 14 RF: 0 Discharge Instructions Instructions: Hypertension (ED), Back Pain (ED) Additional Instructions: Please follow-up for outpatient stress testing as instructed. May use methocarbamol as needed for back pain or spasm/cramps. Please take the amlodipine once daily as prescribed. As we discussed if this causes new weakness, lightheadedness, or any other acute concerns you should be reevaluated. We will ask our care management team to make you an outpatient follow-up in clinic following the stress test. Return to the ER for worsening symptoms or any other acute concerns. Medical Decision Making 43-year-old male presents from home with his sister. He reports weeks of intermittent episodes of upper back pain that seems to come on with exertion. No significant ameliorating factors. Is been worse and constant now for 3 days and associated with a sensation of weakness of the upper extremities, generalized malaise. He is noted to be hypertensive, 164/106. Differential diagnosis is broad including hypertensive urgency, acute coronary syndrome, must exclude chest mass. Patient IV access established, placed on a nutrient management specialist, EKG obtained he is referred for laboratory testing and portable chest x-ray. He does have a history of hypertension, currently not taking medications, states that he no longer wishes to see his current primary care provider. Portable chest x-ray unremarkable. EKG without acute findings. Given the broad differential diagnosis considered, the patient was sent for CT scan of the chest which was without acute findings. Laboratory analysis: White blood cell count is 7.5, hematocrit is 46, platelets 331, chemistries reassuring with slight anion gap of 12. LFTs unremarkable, troponin negative, BNP 5. Urinalysis unremarkable. Repeat troponin obtained and negative. Patient's complaint of feeling weak in the upper extremity has now resolved and he has full motor strength. As noted previously, there is no sensory deficits. His intrascapular pain is nonspecific but may represent atypical angina. Additionally, he is known to have a history of hypertension per records and currently not on any medications. He will relate that he has been hypertensive for months on and each blood pressure check. Therefore, I do feel he is appropriate to trial a first-line therapy for hypertension. Given my concern for the possibility of anginal equivalent type symptoms, I have ordered an outpatient stress test, we will arrange an outpatient follow-up in clinic, and I will place him on a low-dose of amlodipine. Finally, he may have a component of muscular pain and spasm and I will trial a small number of methocarbamol. He understands the outpatient plan of care as well as indications to seek reevaluation in the ER. Lab Data Lab results reviewed: Yes I reviewed the patient's lab results. Labs: Laboratory Results - last 24 hr 05/03/19 05/03/19 05/03/19 09:21 09:21 09:21 WBC 7.58 RBC 4.99 Hgb 15.3 Hct 46.5 MCV 93.2 MCH 30.7 MCHC 32.9 RDW 12.5 Plt Count 331 MPV 9.6 Immature Gran % 0.1 Neutrophils % 52.2 Lymphocytes % 39.4 Monocytes % 6.9 Eosinophils % 0.9 Basophils % 0.5 Absolute Neutrophils 3.95 Absolute Lymphocytes 2.99 Absolute Monocytes 0.52 Absolute Eosinophils 0.07 Absolute Basophils 0.04 PT 9.9 INR 1.0 APTT 23.9 Sodium 140 Potassium 4.0 Chloride 104 Carbon Dioxide 23.7 Anion Gap 12.3 H BUN 12 Creatinine 1.00 Estimated GFR/1.73 m2 >= 60.00 Glucose 119 H Calcium 8.9 Magnesium 1.9 Total Bilirubin 0.6 AST 26 ALT 49 Alkaline Phosphatase 49 Creatine Kinase Troponin I < 0.05 NT-Pro-B Natriuret Pep 5 Total Protein 7.8 Albumin 4.2 05/03/19 09:21 WBC RBC Hgb Hct MCV MCH MCHC RDW Plt Count MPV Immature Gran % Neutrophils % Lymphocytes % Monocytes % Eosinophils % Basophils % Absolute Neutrophils Absolute Lymphocytes Absolute Monocytes Absolute Eosinophils Absolute Basophils PT INR APTT Sodium Potassium Chloride Carbon Dioxide Anion Gap BUN Creatinine Estimated GFR/1.73 m2 Glucose Calcium Magnesium Total Bilirubin AST ALT Alkaline Phosphatase Creatine Kinase 279 Troponin I NT-Pro-B Natriuret Pep Total Protein Albumin ECG Data Attestation: I personally reviewed and interpreted this ECG (s) as follows: Interpretation: Normal sinus rhythm, rate of 81, the QRS is narrow, there is no ST segment elevation present. There is note of Q waves in leads I and aVL. No comparison available EKG #2 obtained at 1209 hrs. reveals normal sinus rhythm with a rate of 73, the QRS is narrow, there is no ST segment elevation, previously noted Q waves in leads I and aVL. HPI General Mode of arrival: ambulatory. Date/Time Provider Initiated Documentation: 05/03/19 08:56. Limitations to Documentation: no limitations. Information obtained by: patient. History of Present Illness 43 year old M presents to the emergency department with the chief complaint of 43-year-old male weeks of back pain, worse over 3 days, described as moderate, Quality is described as constant, and is localized to the back. Patient reports no radiation. Patient started experiencing this week(s) and it has been intermittent and other (Constant over 3 days). No relieving factors improve symptom(s), No exacerbating factors reported . Patient notes other (States he feels generalized weakness, most in his upper extremity, worse with exertion. Intrascapular back pain that started weeks ago, worse over 3 days); denies cough. Patient did receive the following treatments prior to arrival, none Related Data Home Medications Medication Instructions Recorded Confirmed amlodipine 5 mg PO DAILY #30 tab 05/03/19 methocarbamol 500 mg PO Q6H PRN #14 tab 05/03/19 Previous Rx's Medication Instructions Recorded amlodipine 5 mg PO DAILY #30 tab 05/03/19 methocarbamol 500 mg PO Q6H PRN #14 tab 05/03/19 Allergies Allergy/AdvReac Type Severity Reaction Status Date / Time ciprofloxacin [From Cipro] Allergy Intermediate Unverified 05/03/19 09:05 povidone-iodine Allergy Skin Rash Unverified 05/03/19 09:05 [From Betadine] soap [From Betadine] Allergy Skin Rash Unverified 05/03/19 09:05 ibuprofen AdvReac Intermediate GI Bleeding Unverified 05/03/19 09:05 adhesive AdvReac Mild unknown Verified 05/03/19 09:05 General Stated Complaint: GenMedical MAZIN: 2 Review of Systems Narrative: Denies fever, chills. No rash. No current medications. [facility] Medical History Back pain (Chronic) GERD (gastroesophageal reflux disease) (Chronic) Gout (Chronic) Family History Father Heart disease Mother COPD (chronic obstructive pulmonary disease) Social History Smoking/Tobacco Use Status: Current every day Tobacco Type: smokeless tobacco Quit status: quit date established Alcohol Intake: never Drug use: Occasionally Substance use type: marijuana Household members: none Do you feel safe at home: Yes Do you feel safe in your relationship?: Yes Exam Narrative Exam Narrative: GEN: awake, alert, oriented 3. Pleasant, well groomed, interactive. HEAD: Normocephalic, atraumatic ENT: Mucous membranes moist, External ear exam unremarkable EYES: PERRL, EOMI NECK: Full ROM, no ALEXUS, no menigismus CHEST/RESP: Nontender, clear to auscultation bilateral, no wheeze/rhonchi/rales CARDIOVASCULAR: RRR, no murmur, rub najma. 1+ Rad pulse bilateral ABDOMEN: Soft, nontender, no mass. +Bowel sounds EXT: Full ROM, no edema, no rash. On motor examination, patient is able to resist and elevate his arms against flexion and extension testing. Motor is graded 5-/5 bilaterally. He is able to make the okay sign, cross long finger over index and touch thumb to pinky. Sensation intact throughout. The patient is slow to respond with a resting tremor that is symmetric. Neuro: Grossly normal neurologic exam, conversant, interactive. Psych: Speech fluent, thoughts congruent, affect normal Course Vital Signs Vital signs: Vital Signs Temperature 36.6 C 05/03/19 08:59 Pulse 86 05/03/19 08:59 Respiratory Rate 18 05/03/19 08:59 Blood Pressure 164/106 H 05/03/19 08:59 Temperature 36.6 C 05/03/19 08:59 Temperature Source Oral 05/03/19 08:59 Pulse 86 05/03/19 08:59 Respiratory Rate 18 05/03/19 08:59 Blood Pressure 164/106 H 05/03/19 08:59 Blood Pressure Position Supine 05/03/19 08:59 Oxygen Delivery Method Room Air 05/03/19 08:59 Oxygen Flow Rate 0 05/03/19 08:59 Pain Level 9 05/03/19 08:59
[2019-05-03 09:32] LABS: Abs Immature Grans 0.01 k/cumm (0.0-0.09); Absolute Basophil Count 0.04 k/cumm (0.0-0.2); Absolute Eosinophil Count 0.07 k/cumm (0.0-0.7); Absolute Lymphocyte Count 2.99 k/cumm (1.2-3.4); Absolute Monocyte Count 0.52 k/cumm (0.11-0.7); Absolute Neutrophil Count 3.95 k/cumm (1.2-6.7); Basophils % 0.5; Eosinophils % 0.9; HCT 46.5 % (40.0-50.0); HGB 15.3 g/dL (13.5-17.5); Immature Grans % 0.1 %; Lymphocytes % 39.4; Mean Corp. HGB Concentration 32.9 g/dL (32.0-36.0); Mean Corpuscular Hemoglobin 30.7 pg (27.0-33.0); Mean Corpuscular Volume 93.2 fL (80-95); Mean Platelet Volume 9.6 fL (8.0-11.0); Monocytes % 6.9; Neutrophils % 52.2; Platelet Count 331 x1000/uL (130-400); RBC 4.99 m/cumm (4.50-6.00); RBC Distribution Width 12.5 % (11.8-14.1); White Blood Cell Count 7.58 k/cumm (4.4-10.8)
--- NOTE | 2019-05-03 09:45 | DI.CT_ITS ---
EXAM: CT CHEST WO CLINICAL HISTORY: intrascpular pain for weeks, 3d worse, arms 'weak'. TECHNIQUE: Imaging protocol: Axial computed tomography images were obtained and coronal and sagittal reformatted images were created and reviewed. COMPARISON: No exams were available for comparison FINDINGS: Tracheobronchial tree: Patent where visualized. Mediastinum and Lila: No dominant adenopathy or fluid collection. Pulmonary parenchyma: No consolidation or dominant measurable mass. No architectural distortion. Pleura: No effusion or pneumothorax. Heart: The heart is not dilated. No coronary artery calcifications are seen. Aorta: Thoracic aorta non-dilated. Mild atherosclerosis. Upper abdomen: Unremarkable. Lymph nodes: Within normal limits. Bones:Mild degenerative changes. No significant central spinal canal or neural foraminal stenosis. IMPRESSION: No acute pulmonary process. Findings were discussed with the emergency department on the date of the examination. DATA REPOSITORY: All CT scans at this facility are submitted to the National Radiology Data Registry (NRDR) Dose Index Registry (DIR) with the [employer] ([employer]). RADIATION OPTIMIZATION: All CT scans at this facility use at least one of these dose optimization te chniques: automated exposure control; mA and/or kV adjustment per patient size (includes targeted exa ms where dose is matched to clinical indication); or iterative reconstruction.
[2019-05-03 10:02] LABS: ALT 49 U/L (16-63); AST 26 U/L (15-37); Albumin 4.2 g/dL (3.4-5.0); Alkaline Phosphatase 49 U/L (46-116); Anion Gap 12.3 mmol/L (3-11); BUN 12 mg/dL (7-18); Bilirubin, Total 0.6 mg/dL (0.2-1.0); CO2 23.7 mmol/L (21.0-32.0); Calcium 8.9 mg/dL (8.5-10.1); Chloride 104 mmol/L (98-107); Glucose 119 mg/dL (74-106); Magnesium 1.9 mg/dL (1.8-2.4); NT-proBNP 5 pg/mL (<300); Prothrombin Time 9.9 sec (9.3-11.0); Sodium 140 mmol/L (136-145); Total Protein 7.8 g/dL (6.4-8.2)
[2019-05-03 10:05] LABS: Troponin I < 0.05 ng/Ml (<0.06)
[2019-05-03 10:13] LABS: Creatine Kinase 279 U/L (39-308)
[2019-05-03 10:17] LABS: PTT Activated 23.9 sec (21.0-31.4)
[2019-05-03] MEDS: ACETAMINOPHEN 1,000 MG/100 ML BTL 400 MG IVPB (11:25)
[2019-05-03] MEDS: HYDROmorphone 2 MG/ML VIAL 0.5 MG IVP (11:25)
[2019-05-03] MEDS: Normal Saline 1,000 ML 150 ML IV (12:17)
[2019-05-03 12:28] LABS: Bilirubin Negative (Negative); Blood Negative (Negative); Clarity Clear (Clear); Glucose Negative (Negative); Ketones Negative (Negative); Leukocyte Esterase Negative (Negative); Nitrite Negative (Negative); Specific Gravity 1.015 (1.005-1.025); Urobilinogen 0.2 EU/dL (Up TO 0.2)
[2019-05-03 12:37] LABS: Troponin I < 0.05 ng/Ml (<0.06)
== END 2019-05-03 13:07 | disposition home or self-care (01) ==
PROVIDERS: Emergency Provider Emergency Medicine; PCP Nurse Practitioner Family
DX: M54.6 Pain in thoracic spine (principal); R53.81 Other malaise; I10 Essential (primary) hypertension
CPT/HCPCS: 36415; 71250; 80053; 82550; 93005; 96361; 96374; 96375; 99285; 71045; 81003; 83735; 83880; 84484; 85025; 85610; 85730; 93010; 99284; J0131

== ENCOUNTER 2019-05-04 19:15 | Emergency (ER) | payer MEDICARE, MEDICAID, SELFPAY ==
[2019-05-04 19:23] VITALS: BP 111/55; PULSE 92; RESP 22; TEMP 36.8; O2SAT 97
[2019-05-04 20:10] LABS: HCT 42.1 % (40.0-50.0); HGB 14.4 g/dL (13.5-17.5); Mean Corp. HGB Concentration 34.2 g/dL (32.0-36.0); Mean Corpuscular Hemoglobin 31.9 pg (27.0-33.0); Mean Corpuscular Volume 93.1 fL (80-95); Mean Platelet Volume 9.4 fL (8.0-11.0); Platelet Count 288 x1000/uL (130-400); RBC 4.52 m/cumm (4.50-6.00); RBC Distribution Width 12.2 % (11.8-14.1)
[2019-05-04] MEDS: Dexamethasone 4 MG TAB 10 MG PO (20:12)
[2019-05-04] MEDS: Acetaminophen 500 MG TAB 1000 MG PO (20:12)
[2019-05-04 20:20] LABS: Uric Acid 10.5 mg/dL (3.5-7.2)
[2019-05-04 20:21] LABS: C-Reactive Protein < 0.05 mg/dL (0.0-0.3)
[2019-05-04 20:32] LABS: TSH (W/Ref FT4) 2.77 uIU/mL (0.36-3.74)
[2019-05-04 20:47] LABS: ESR 6 mm/hr (0-15)
--- NOTE | 2019-05-04 22:04 | W.ED.GENAD ---
Discharge Plan Disposition Patient Disposition: HOME Condition: Stable Discharge Details Chief Complaint: Orthopedic Clinical Impression: Arthralgia Primary Care Provider: David Watkins ED Provider: Almita Fink Home Meds and New Rx's Prescriptions: New prednisone 10 mg tablet 10 mg PO DAILY Qty: 47 RF: 0 Discontinued methocarbamol 500 mg tablet 500 mg PO Q6H PRN (Reason: Back pain or spasm) Qty: 14 RF: 0 No Action amlodipine 5 mg tablet 5 mg PO DAILY Qty: 30 RF: 0 Discharge Instructions Additional Instructions: Ice to areas of discomfort as discussed if desired. Rest activities as tolerated. Prednisone as prescribed. This will cause some difficulty sleeping and can cause agitation. Please dose in the morning. Follow-up promptly with primary care doctor. advertising traffic manager will help arrange new primary care doctor appointment as discussed. Return for any worsening, concerns or alarming symptoms sooner if needed. The ER will call for any positive tick test results Please feel free to call Esperanza garner, at [phone] for the remainder of your test results. Medical Decision Making 43-year-old patient presents for complaints of right elbow pain. Patient was evaluated in the emergency room yesterday for complaints of neck pain with radiation to arms as well as back pain. Patient underwent extensive evaluation including CT of his chest and lab evaluation unremarkable for identified acute abnormality. Patient reports neck pain and back pain are improved today however right elbow pain is extremely uncomfortable. Patient reports he has struggled with migratory joint pain for several months most specifically the last 7 months. Patient reports he had had preceding pain for several years but in the last several months he has been having difficulty tolerating frequency of joint pain. Patient also does report moderate fatigue for the last 7 months. Denies any fevers, chills, nausea, vomiting. No obvious infectious symptoms. Patient denies obvious tick bite over the summer. Patient denies any abdominal pain, nausea, vomiting or diarrhea. Patient very frustrated with several attempts to speak to his PCP about his migratory joint pain. Patient no longer seeing his PCP due to these frustrations. Patient does report over the years he has been put on colchicine or allopurinol for gout. Patient reports he does feel significantly better after taking these medications and pain returns. Patient reports he has taken prednisone in the past feels significantly better when taking prednisone but after prednisone is tapered and discontinued his symptoms return. Given this conversation with patient I am concerned with the possibility of an endocrine related disease or tickborne related disease. We will send panel of labs including sed rate, C-reactive protein, PAUL, RF, tickborne disease panel, and uric acid. Uric acid is notably elevated at 10. Sed rate, C-reactive protein and CBC reviewed today. PAUL, RF and tickborne disease pending. Discussed these test results with the patient. Offered either colchicine or prednisone. Patient's preference is prednisone taper. Patient did receive Decadron and Tylenol upon arrival to the ER after my initial evaluation. Patient is reporting some improvement after receiving these medications. Will taper prednisone. I did discuss this with Dr. Morales who is patient's doctor in the ER last evening. He recommends taper starting at 50 mg x 3 days, 40 x 3 days, 30 x 3 days, 20 x 3 days, 10 x 3 days. Patient agrees with this plan of care. Patient put on healthcare business analyst list for follow-up with new PCP this week. Patient advised to return for any alarming symptoms, worsening or concerns. Patient agrees with plan of care. Of note patient was offered a sling and declines. The patient was stable and requested discharge. Prior to discharge, my usual and customary return precautions were reviewed with the patient - this included follow-up instructions and reasons to return to the Emergency Department if conditions worsens, does not improve as expected, or other new concerns arise. HPI General Date/Time Provider Initiated Documentation: 05/04/19 19:18. HPI Narrative: Is a 43-year-old patient presenting to the emergency room for complaints of joint pain. Patient specifically complaining of right arm pain. Patient was seen in the emergency room yesterday for complaints of neck and back pain with radiation to arms. Patient was evaluated with chest CT yesterday including lab evaluation. Patient reports neck and back pain have improved, denies any chest pain at this time however is complaining primarily of right elbow pain which is now very difficult to tolerate. Patient denies any specific injury or trauma. After long conversation with this patient he reports that he has had significant joint pain which is been migratory and bilateral for the last several months which is been worsening. Patient does report pain issues for the last several years but specifically is noting joints are intermittently swelling and becoming quite painful lasting transiently and migrating to other areas. Patient does have known gout for which he has been on colchicine, allopurinol which have been temporarily helpful. Patient is reporting fatigue which has been more evident over the last 7 months. Patient denies obvious tick bites. Does report occasional headaches. Denies any fevers, chills, nausea, vomiting. Has no difficulty eating or drinking. Is no abdominal pain, moves bowels normally. Related Data Home Medications Medication Instructions Recorded Confirmed amlodipine 5 mg PO DAILY #30 tab 05/03/19 05/04/19 prednisone 10 mg PO DAILY #47 tab 05/04/19 Previous Rx's Medication Instructions Recorded amlodipine 5 mg PO DAILY #30 tab 05/03/19 prednisone 10 mg PO DAILY #47 tab 05/04/19 Allergies Allergy/AdvReac Type Severity Reaction Status Date / Time ciprofloxacin [From Cipro] Allergy Intermediate Unverified 05/04/19 19:28 povidone-iodine Allergy Skin Rash Unverified 05/04/19 19:28 [From Betadine] soap [From Betadine] Allergy Skin Rash Unverified 05/04/19 19:28 ibuprofen AdvReac Intermediate GI Bleeding Unverified 05/04/19 19:28 adhesive AdvReac Mild unknown Verified 05/04/19 19:28 General Stated Complaint: Orthopedic MAZIN: 3 Review of Systems All systems reviewed & are unremarkable except as noted in HPI and below Constitutional Constitutional: Denies chills, Reports fatigue, Denies fever(s), Reports headache(s) and Denies malaise ENT Ears, Nose, Mouth, and Throat: Denies vertigo, Denies dizziness, Reports headache(s), Denies nasal obstruction, Reports neck pain, Denies post nasal drip, Denies sinus pain, Denies sinus pressure and Denies sore throat Cardiovascular Cardiovascular: Denies chest pain and Denies palpitations Respiratory Respiratory: Denies cough Gastrointestinal Gastrointestinal: Denies abdominal pain, Denies diarrhea, Denies nausea and Denies vomiting Genitourinary Genitourinary: Denies hematuria and Denies dysuria Musculoskeletal Musculoskeletal: Reports arthralgias, Reports joint swelling, Reports limited range of motion (Right elbow) and Reports neck pain Integumentary/Breasts Skin/Breast: Denies rash Neurologic Neurologic: Denies vertigo, Denies dizziness, Reports headache(s) and Denies paresthesias Endocrine Endocrine: Reports fatigue, Denies polyphagia, Denies polydipsia and Denies palpitations [facility] Medical History Back pain (Chronic) GERD (gastroesophageal reflux disease) (Chronic) Gout (Chronic) Social History Smoking/Tobacco Use Status: Current every day Tobacco Type: smokeless tobacco Quit status: quit date established Alcohol Intake: never Drug use: Occasionally Substance use type: marijuana Household members: none Do you feel safe at home: Yes Do you feel safe in your relationship?: Yes Exam Narrative Exam Narrative: CONST: Healthy appearing patient, in no acute distress. Well hydrated. Alert and oriented. HENMT: Head nomocephalic, normal to inspection. Atraumatic. Hearing grossly normal. No pharyngeal erythema EYES: General normal appearance. Alignment normal. Eyelids normal. Conjunctiva normal. NECK: Normal visual inspection. FROM. Trachea midline. Mild midline tenderness. Bilateral paraspinal tenderness. CHEST: Normal insepection of the chest. RESP: Normal respiratory effort. Speaking full sentences. No cough. No audible wheezing. No retractions. CARDIO: No JVD. MUSCULOSKELETAL: Normal Gait. Right arm: No shoulder pain with collision, humeral pain with palpation. Moderate elbow tenderness, mild warmth. No obvious erythema. Limited range of motion due to pain. No obvious effusion. No significant bursa tenderness. Nothing to indicate septic joint. Able to supinate pronate with pain. No forearm pain with palpation, wrist pain with palpation. Distal neurovascularly intact. Left arm exam benign. Lower extremity exam benign. SKIN: Normal. Dry. No rashes. NEURO: Alert and awake. Speech clear. PSYCH: Normal affect. Cooperative. Course Vital Signs Vital signs: Vital Signs Temperature 36.8 C 05/04/19 19:23 Pulse 92 H 05/04/19 19:23 Respiratory Rate 22 05/04/19 19:23 Blood Pressure 111/55 L 05/04/19 19:23 Pulse Oximetry 97 05/04/19 19:23 Temperature 36.8 C 05/04/19 19:23 Temperature Source Skin 05/04/19 19:23 Pulse 92 H 05/04/19 19:23 Respiratory Rate 22 05/04/19 19:23 Blood Pressure 111/55 L 05/04/19 19:23 Blood Pressure Position Sitting 05/04/19 19:23 Pulse Oximetry 97 05/04/19 19:23 Oxygen Delivery Method Room Air 05/04/19 19:23 Oxygen Flow Rate 0 05/04/19 19:23 Pain Level 10 05/04/19 19:26 Lab/Test Results Lab/Test Results: Laboratory Tests Range/Units 05/04/19 05/04/19 05/04/19 20:01 20:01 20:01 WBC (4.4-10.8) k/cumm RBC (4.50-6.00) m/cumm Hgb (13.5-17.5) g/dL Hct (40.0-50.0) % MCV (80-95) fL MCH (27.0-33.0) pg MCHC (32.0-36.0) g/dL RDW (11.8-14.1) % Plt Count (130-400) x1000/uL MPV (8.0-11.0) fL ESR (0-15) mm/hr 6 Uric Acid (3.5-7.2) mg/dL 10.5 H C-Reactive Protein (0.0-0.3) mg/dL < 0.05 TSH (0.36-3.74) uIU/mL Range/Units 05/04/19 05/04/19 20:01 20:01 WBC (4.4-10.8) k/cumm 12.20 H RBC (4.50-6.00) m/cumm 4.52 Hgb (13.5-17.5) g/dL 14.4 Hct (40.0-50.0) % 42.1 MCV (80-95) fL 93.1 MCH (27.0-33.0) pg 31.9 MCHC (32.0-36.0) g/dL 34.2 RDW (11.8-14.1) % 12.2 Plt Count (130-400) x1000/uL 288 MPV (8.0-11.0) fL 9.4 ESR (0-15) mm/hr Uric Acid (3.5-7.2) mg/dL C-Reactive Protein (0.0-0.3) mg/dL TSH (0.36-3.74) uIU/mL 2.77
[2019-05-04 22:06] VITALS: BP 110/58; PULSE 90; RESP 22; TEMP 36.8; O2SAT 97
--- NOTE | 2019-05-05 07:34 | NUR.NOTE ---
Referral faxed to PCP [facility].Nursing Note:
[2019-05-05 16:52] LABS: Rheumatoid Factor <8.6 IU/mL (<12.0)
[2019-05-06 11:49] LABS: Lyme Ab w Rflx to Lyme Confirm Negative (Negative)
[2019-05-06 15:14] LABS: ANA Interpretation Negative (Negative)
[2019-05-06 22:12] LABS: Anaplasma phagocytophilum Negative (Negative); B. miyamotoi PCR Negative (Negative); Babesia divergens/MO-1 Negative (Negative); Babesia duncani Negative (Negative); Babesia microti Negative (Negative); Ehrlichia chaffeensis Negative (Negative); Ehrlichia ewingii/canis Negative (Negative); Ehrlichia muris eauclairensis Negative (Negative)
== END 2019-05-04 22:06 | disposition home or self-care (01) ==
PROVIDERS: Emergency Provider Physician Assistant; PCP Nurse Practitioner Family
DX: M25.521 Pain in right elbow (principal)
CPT/HCPCS: 85027; 85652; 87798; 99283; 84443; 84550; 86038; 86140; 86431; 86618; J8540

== ENCOUNTER 2019-05-27 10:46 | Emergency (ER) | payer MEDICARE, MEDICAID, SELFPAY ==
[2019-05-27 10:48] VITALS: PULSE 122; RESP 20; TEMP 37.2; O2SAT 96
[2019-05-27 10:56] VITALS: BP 158/84
[2019-05-27 11:01] VITALS: RESP 18
--- NOTE | 2019-05-27 11:15 | ED.GENADUL_ITS ---
Discharge Plan Disposition Patient Disposition: HOME Condition: Stable Discharge Details Chief Complaint: GenMedical Clinical Impression: Chronic joint pain Primary Care Provider: Dvaid Watkins ED Provider: Simran Majano Home Meds and New Rx's Prescriptions: New oxycodone 5 mg tablet 5 mg PO Q6H PRN (Reason: pain) Qty: 14 RF: 0 prednisone 20 mg tablet See Rx Instructions .ROUTE .COMPLEX Qty: 18 RF: 0 Continued amlodipine 5 mg tablet 5 mg PO DAILY Qty: 30 RF: 0 Discontinued prednisone 10 mg tablet 10 mg PO DAILY Qty: 47 RF: 0 Discharge Instructions Instructions: Chronic Pain (ED) Additional Instructions: Take the steroids until finished. Take the pain medication as needed and directed. Follow-up with your scheduled appointment with your primary care doctor on Thursday for further evaluation and for referral to rheumatology. Return to the emergency department if you develop any worsening or new concerning symptoms such as fever, difficulty breathing, extremity weakness. Discharge Data Discharge Date/Time-TO BE ENTERED AT DEPARTURE: 05/27/19 11:58 Discharge Physician: Simran Majano Medical Decision Making 43-year-old male with a history of chronic back pain, GERD, gout presents with acute on chronic extremity and back pain for the past few days. Patient has had chronic back pain since an injury at work several years ago. He has had extremity pain including knees, shoulders and elbow for the past few years. His right elbow pain and swelling is his main complaint today. This is patient's fifth visit for pain related complaints in the past few months. He was most recently seen end of last month and had negative ESR, CRP, Lyme titer, PAUL, TSH and CT chest. His uric acid level was elevated to 10.5 at that time. Patient has moderate right elbow edema and tenderness and pain with range of motion. There is no evidence of cellulitis to any extremity. He is neurovascular intact. He appears nontoxic but quite uncomfortable. Discussed with patient that he obviously has an underlying arthralgia but from an unknown etiology at this time as Lyme disease and RA and acute infectious cause appears unlikely. Will treat with steroids and pain medicine again. He is advised to follow-up with his scheduled appointment with his primary care doctor Thursday and for referral to rheumatology for further evaluation. The risks of continued steroid use explained and patient would rather proceed with these at this time. Usual and customary return precautions given prior to discharge. HPI General Mode of arrival: ambulatory . Date/Time Provider Initiated Documentation: 05/27/19 10:47 . Limitations to Documentation: no limitations . Information obtained by: patient . HPI Narrative: Patient is a 43-year-old male with a history of gout, chronic back pain and GERD presents with acute on chronic right elbow, bilateral shoulders, bilateral wrists and bilateral knee pain. Patient states he has had chronic extremity and back pain for several years. Patient has been seen here multiple times for the same complaint. He denies any new injury, fever, chills, chest pain, shortness of breath, abdominal pain, vomiting, diarrhea, urinary symptoms, penile discharge. Patient admits to significant relief with steroids but as soon as they finished his pain returns. Denies any relief with Tylenol. Cannot take ibuprofen due to history of GI bleeding. He has an appointment with his primary care doctor on Thursday for these complaints. Related Data Home Medications Medication Instructions Recorded Confirmed amlodipine 5 mg PO DAILY #30 tab 05/03/19 05/27/19 oxycodone 5 mg PO Q6H PRN #14 tab 05/27/19 prednisone See Rx Instructions .ROUTE 05/27/19 .COMPLEX #18 tab Previous Rx's Medication Instructions Recorded amlodipine 5 mg PO DAILY #30 tab 05/03/19 oxycodone 5 mg PO Q6H PRN #14 tab 05/27/19 prednisone See Rx Instructions .ROUTE 05/27/19 .COMPLEX #18 tab Allergies Allergy/AdvReac Type Severity Reaction Status Date / Time ciprofloxacin [From Cipro] Allergy Intermediate Unverified 05/27/19 11:05 povidone-iodine Allergy Skin Rash Unverified 05/27/19 11:05 [From Betadine] soap [From Betadine] Allergy Skin Rash Unverified 05/27/19 11:05 ibuprofen AdvReac Intermediate GI Bleeding Unverified 05/27/19 11:05 adhesive AdvReac Mild unknown Verified 05/27/19 11:05 General Stated Complaint: GenMedical MAZIN: 3 Review of Systems All systems reviewed & are unremarkable except as noted in HPI and below Constitutional Constitutional: Reports as per HPI, Denies chills and Denies fever(s) Eyes Eyes: Denies blurry vision ENT Ears, Nose, Mouth, and Throat: Denies dizziness, Denies sore throat and Denies throat swelling Cardiovascular Cardiovascular: Denies chest pain and Denies dyspnea Respiratory Respiratory: Denies cough and Denies dyspnea Gastrointestinal Gastrointestinal: Denies abdominal pain, Denies diarrhea and Denies vomiting Genitourinary Genitourinary: Denies hematuria and Denies dysuria Musculoskeletal Musculoskeletal: Denies back pain, Denies numbness and Reports other (Right elbow, both hands, both knees) Integumentary/Breasts Skin/Breast: Denies lesions and Denies rash Neurologic Neurologic: Denies dizziness, Denies localized weakness and Denies numbness Allergic/Immunologic Allergic/Immunologic: Denies throat swelling [facility] Social History Smoking/Tobacco Use Status: Current every day Tobacco Type: smokeless tobacco Quit status: quit date established Alcohol Intake: never Drug use: Occasionally Substance use type: marijuana Household members: none Do you feel safe at home: Yes Do you feel safe in your relationship?: Yes Exam Const General: cooperative and uncomfortable Orientation: alert, awake and oriented x3 HENMT Head: normal to inspection Ears: hearing grossly normal bilaterally and external ears normal General nose exam: external nose normal Face and sinus: normal facial exam Mouth: oral mucosae normal Teeth and gingiva: dentition normal Throat: posterior oropharynx normal Eyes General: appearance normal, both eyes and all related structures Eyelids: eyelids normal EOM: EOM intact bilaterally Neck Neck: normal visual inspection Lymphatic: no lymphadenopathy noted Chest Chest: normal inspection of the chest Resp Effort & Inspection: normal respiratory effort and able to speak in complete sentences Auscultation: clear to auscultation bilaterally Cardio Rate: regular rate Rhythm: regular rhythm GI Inspection: normal to inspection Palpation: soft, not firm, no guarding, no hepatosplenomegaly, no masses and nontender Auscultation: normal bowel sounds Skin General skin exam: no rashes or lesions noted Neuro General: patient alert and patient awake Cognition: normal cognition Speech: speech normal Gait: normal gait Motor: muscle tone normal throughout Sensory Exam: no sensory deficits noted Extrem Other: Moderate right elbow edema and tenderness to palpation. Significant pain with range of motion at right elbow. No erythema, ecchymosis. Minimal pain with range of motion at bilateral shoulders, wrists and knees. No erythema, edema, deformity noted of bilateral shoulders, wrists, knees. Distal pulses intact. Psych Appearance: grossly normal Mental Status: mental status grossly normal Speech and Movement: speech and movement normal Affect: normal affect Thought Process: normal Course Vital Signs Vital signs: Vital Signs Temperature 99.0 F 05/27/19 10:48 Pulse 122 H 05/27/19 10:48 Respiratory Rate 20 05/27/19 10:48 Pulse Oximetry 96 05/27/19 10:48 Temperature 99.0 F 05/27/19 10:48 Temperature Source Skin 05/27/19 10:48 Pulse 122 H 05/27/19 10:48 Respiratory Rate 18 05/27/19 11:01 Respiratory Effort Non-Labored 05/27/19 11:01 Respiratory Depth Normal 05/27/19 11:01 Respiratory Pattern Normal 05/27/19 11:01 Blood Pressure 158/84 H 05/27/19 10:56 Blood Pressure Position Sitting 05/27/19 10:48 Pulse Oximetry 96 05/27/19 10:48 Oxygen Delivery Method Room Air 05/27/19 10:48 Oxygen Flow Rate 0 05/27/19 10:48 Pain Level 10 05/27/19 10:48
[2019-05-27] MEDS: oxyCODONE 5 MG TAB PO (11:34)
[2019-05-27] MEDS: predniSONE 20 MG TAB 60 MG PO (11:35)
== END 2019-05-27 11:58 | disposition home or self-care (01) ==
PROVIDERS: Emergency Provider Physician Assistant; PCP Nurse Practitioner Family
DX: M54.5 Low back pain (principal); M25.521 Pain in right elbow; M25.561 Pain in right knee; M25.562 Pain in left knee; M25.511 Pain in right shoulder; M25.512 Pain in left shoulder; G89.29 Other chronic pain; R60.0 Localized edema
CPT/HCPCS: 99283; J7512

== ENCOUNTER 2019-06-03 10:11 | Outpatient (REF) | payer MEDICARE, MEDICAID, SELFPAY ==
[2019-06-03 12:44] LABS: C-Reactive Protein 0.12 mg/dL (0.0-0.3); Uric Acid 8.1 mg/dL (3.5-7.2)
[2019-06-03 13:15] LABS: ESR 9 mm/hr (0-15)
== END 2019-06-03 10:31 ==
LOC: NCHCN 10:11
PROVIDERS: PCP Nurse Practitioner Family; Visit Provider Physician Assistant
DX: M10.9 Gout, unspecified (principal)
CPT/HCPCS: 85652; 84550; 86140

== ENCOUNTER 2019-07-27 11:57 | Outpatient (CLI) | payer MEDICARE, MEDICAID, SELFPAY ==
--- NOTE | 2019-07-27 09:45 | DI.RAD_ITS ---
EXAM: XR KNEE LT 3V AP,LAT,JEY CLINICAL HISTORY: pain TECHNIQUE: COMPARISON: CR LEFT KNEE 3 VIEW COMPLETE from 01/11/2017 FINDINGS: Three views were obtained. There is prominent osteophyte of the anterior tibial tubercle with appare nt soft tissue swelling in the region of the patellar tendon. Similar findings were present on prior examination of December 2016. No other significant bony or soft tissue abnormality seen. IMPRESSION:
== END 2019-07-27 12:17 ==
PROVIDERS: PCP Physician Assistant; Referring Provider Nurse Practitioner Family; Visit Provider Orthopaedic Surgery
DX: M25.562 Pain in left knee (principal); M79.89 Other specified soft tissue disorders; M10.9 Gout, unspecified
CPT/HCPCS: 73562; 99214

== ENCOUNTER 2019-09-09 15:10 | Outpatient (REF) | payer MEDICARE, MEDICAID, SELFPAY ==
[2019-09-10 01:41] LABS: COVID-19 RT-PCR UVMMC Result Negative (Negative)
== END 2019-09-09 15:30 ==
LOC: NCHCN 15:10
PROVIDERS: Orthopaedic Surgery; PCP Physician Assistant; Visit Provider Physician Assistant
DX: Z01.818 Encounter for other preprocedural examination (principal); Z03.818 Encounter for observation for suspected exposure to other biological agents ruled out
CPT/HCPCS: U0003

== ENCOUNTER 2019-11-07 09:23 | Outpatient (REF) | payer MEDICARE, MEDICAID, SELFPAY ==
[2019-11-07 18:45] LABS: Hemoglobin A1C 5.4 % (3.8-5.6)
[2019-11-07 19:04] LABS: ALT 79 U/L (16-63); AST 40 U/L (15-37); Albumin 4.4 g/dL (3.4-5.0); Alkaline Phosphatase 49 U/L (46-116); Anion Gap 10.7 mmol/L (3-11); BUN 15 mg/dL (7-18); Bilirubin, Total 0.6 mg/dL (0.2-1.0); CO2 27.3 mmol/L (21.0-32.0); CREATININE 0.81 mg/dL (0.70-1.30); Calcium 9.7 mg/dL (8.5-10.1); Calculated LDL 171 mg/dL (<100); Chloride 99 mmol/L (98-107); Cholesterol 259 mg/dL (<200); Glucose 106 mg/dL (74-106); HDL Cholesterol 45 mg/dL (40-60); Potassium 3.6 mmol/L (3.5-5.1); Sodium 137 mmol/L (136-145); Total Protein 7.8 g/dL (6.4-8.2); Triglyceride 218 mg/dL (<150)
[2019-11-07 19:16] LABS: C-Reactive Protein 0.98 mg/dL (0.0-0.3)
[2019-11-07 20:10] LABS: ESR 16 mm/hr (0-15)
[2019-11-09 10:23] LABS: Cyclic Citrullinated Peptide <2.5 U/mL (<5.0)
== END 2019-11-07 09:43 ==
LOC: NCHCN 09:23
PROVIDERS: PCP Physician Assistant; Visit Provider Physician Assistant
DX: I10 Essential (primary) hypertension (principal); M25.50 Pain in unspecified joint; M10.9 Gout, unspecified; G89.29 Other chronic pain
CPT/HCPCS: 80053; 80061; 85652; 86200; 83036; 84550; 86140

== ENCOUNTER 2021-01-07 11:10 | Outpatient (REF) | payer MEDICARE, MEDICAID, SELFPAY ==
[2021-01-07 15:27] LABS: ALT 289 U/L (16-63); AST 66 U/L (15-37); Albumin 4.6 g/dL (3.4-5.0); Alkaline Phosphatase 126 U/L (46-116); Anion Gap 13.2 mmol/L (3-11); BUN 11 mg/dL (7-18); Bilirubin, Total 0.5 mg/dL (0.2-1.0); CO2 25.8 mmol/L (21.0-32.0); CREATININE 0.8 mg/dL (0.70-1.30); Calcium 9.4 mg/dL (8.5-10.1); Calculated LDL 131 mg/dL (<100); Chloride 102 mmol/L (98-107); Cholesterol 194 mg/dL (<200); Glucose 111 mg/dL (74-106); HDL Cholesterol 47 mg/dL (40-60); Potassium 4.1 mmol/L (3.5-5.1); Sodium 141 mmol/L (136-145); Total Protein 7.9 g/dL (6.4-8.2); Triglyceride 84 mg/dL (<150)
[2021-01-07 15:58] LABS: Uric Acid 9.9 mg/dL (3.5-7.2)
== END 2021-01-07 11:11 | disposition home or self-care (01) ==
LOC: NCHCN 11:10
PROVIDERS: PCP Physician Assistant; Visit Provider Physician Assistant
DX: E78.5 Hyperlipidemia, unspecified (principal); M10.9 Gout, unspecified; I10 Essential (primary) hypertension
CPT/HCPCS: 80053; 80061; 84550

== ENCOUNTER 2021-06-20 00:42 | Outpatient (CLI) | payer MEDICARE, MEDICAID, SELFPAY ==
--- NOTE | 2021-06-20 | DI.US_ITS ---
Exam(s) US ABDOMEN EXAM: US ABDOMEN CLINICAL HISTORY: ELEVATED LIVER FUNCTION TESTS,R94.5, RECURRENT NAUSEA TECHNIQUE: Ultrasound abdomen performed using standard protocol. COMPARISON: No exams were available for comparison FINDINGS: ABDOMINAL AORTA AND IVC: Visualized portions normal caliber. PANCREAS: Normal where visualized. LIVER: There is diffuse increased echogenicity of the liver consistent with fatty infiltration. The liver measures 21 cm long. Hepatopedal flow in the Portal Vein. GALLBLADDER:Multiple stones are present. No evidence of wall thickening. No pericholecystic fluid id entified. BILIARY SYSTEM: Common bile duct measures < 7 mm. No intrahepatic biliary ductal dilation. ESPOSITO'S SIGN: Negative. KIDNEYS: Kidneys are symmetric in size. No evidence of renal calculi. No evidence of hydronephrosis. No renal mass or cyst identified. SPLEEN: Not enlarged. ASCITES: None seen. IMPRESSION: 1. Hepatomegaly and hepatic steatosis. 2. Cholelithiasis. No sonographic findings to suggest acute cholecystitis. DATA REPOSITORY:
== END 2021-06-20 01:02 ==
PROVIDERS: PCP Physician Assistant; Visit Provider Physician Assistant
DX: R94.5 Abnormal results of liver function studies (principal); R11.0 Nausea; K76.0 Fatty (change of) liver, not elsewhere classified; K80.20 Calculus of gallbladder without cholecystitis without obstruction; R16.0 Hepatomegaly, not elsewhere classified
CPT/HCPCS: 76700

== ENCOUNTER 2021-07-10 10:01 | Outpatient (REF) | payer MEDICARE, MEDICAID, SELFPAY ==
[2021-07-10 14:41] LABS: ALT 54 U/L (16-63); AST 24 U/L (15-37); Albumin 4.7 g/dL (3.4-5.0); Alkaline Phosphatase 58 U/L (46-116); Anion Gap 8.6 mmol/L (3-11); BUN 10 mg/dL (7-18); Bilirubin, Total 0.6 mg/dL (0.2-1.0); CO2 26.4 mmol/L (21.0-32.0); CREATININE 1.1 mg/dL (0.70-1.30); Calcium 9.9 mg/dL (8.5-10.1); Chloride 103 mmol/L (98-107); Glucose 115 mg/dL (74-106); Potassium 4.3 mmol/L (3.5-5.1); Sodium 138 mmol/L (136-145); Uric Acid 7.9 mg/dL (3.5-7.2)
[2021-07-10 15:10] LABS: Hemoglobin A1C 5.4 % (<5.7)
[2021-07-11 09:46] LABS: Hepatitis C Ab w Rflx HCV PCR Negative (Negative)
[2021-07-11 10:06] LABS: HIV-1/2 Ag & Ab Screen Negative (Negative)
== END 2021-07-10 10:02 | disposition home or self-care (01) ==
LOC: NCHCN 10:01
PROVIDERS: PCP Physician Assistant; Visit Provider Physician Assistant
DX: R73.03 Prediabetes (principal); M10.9 Gout, unspecified; Z11.4 Encounter for screening for human immunodeficiency virus [HIV]; I10 Essential (primary) hypertension; R94.5 Abnormal results of liver function studies; Z11.59 Encounter for screening for other viral diseases
CPT/HCPCS: 80053; 86803; 87389; 83036; 84550

== ENCOUNTER → 2021-07-16 00:36 | Outpatient (CLI) | payer MEDICARE, MEDICAID, SELFPAY | PROVIDERS: PCP Physician Assistant; Visit Provider Physician Assistant ==

== ENCOUNTER 2022-05-21 17:57 | Outpatient (REF) | payer MEDICARE, MEDICAID, SELFPAY ==
[2022-05-21 15:45] LABS: MCH 31.6 pg (27.0-33.0); MCHC 34.1 % (32.0-36.0); MCV 93 fL (80-95); MPV 10.4 fL (8.0-11.0); Platelet Count 309 10^3/uL (130-400); RBC 4.74 10^6/uL (4.36-5.78); RDW 11.9 % (11.8-14.1); RDW-SD 39.9 fL; WBC 9.17 10^3/uL (4.4-10.8)
[2022-05-21 16:06] LABS: ALT 49 U/L (16-63); AST 24 U/L (15-37); Albumin 4.8 g/dL (3.4-5.0); Alkaline Phosphatase 57 U/L (46-116); Anion Gap 10.8 mmol/L (3-11); BUN 14 mg/dL (7-18); Bilirubin, Total 0.6 mg/dL (0.2-1.0); CO2 28.2 mmol/L (21.0-32.0); CREATININE 0.9 mg/dL (0.70-1.30); Chloride 104 mmol/L (98-107); Estimated GFR 105.35 (mL/min/1.73m2); Glucose 119 mg/dL (74-106); Potassium 4.3 mmol/L (3.5-5.1); Sodium 143 mmol/L (136-145); Total Protein 7.8 g/dL (6.4-8.2); Uric Acid 10.3 mg/dL (3.5-7.2)
[2022-05-21 16:19] LABS: Calculated LDL 127 mg/dL (<100); Cholesterol 203 mg/dL (<200); HDL Cholesterol 55 mg/dL (40-60); Triglyceride 106 mg/dL (<150)
[2022-05-21 16:49] LABS: Hemoglobin A1C 5.5 % (<5.7)
== END 2022-05-21 17:58 | disposition home or self-care (01) ==
LOC: NCHCN 17:57
PROVIDERS: PCP Physician Assistant; Visit Provider Physician Assistant
DX: M10.9 Gout, unspecified (principal); R73.03 Prediabetes; I10 Essential (primary) hypertension; E78.5 Hyperlipidemia, unspecified
CPT/HCPCS: 80053; 80061; 85027; 83036; 84550

== ENCOUNTER 2022-10-09 13:25 | Inpatient (IN) | payer MEDICARE, MEDICAID, SELFPAY ==
--- NOTE | 2022-10-09 13:45 | DI.CT_ITS ---
Exam(s) CT ABDOMEN PELVIS W EXAM: CT ABDOMEN PELVIS W CLINICAL HISTORY: abd pain, white stool,hx hernia repair,. TECHNIQUE: Imaging Protocol: Axial computed tomography images with coronal and sagittal reformatted images were created and reviewed CONTRAST MATERIAL: Intravenous: Omnipaque-350 100cc Oral: None FINDINGS: VISUALIZED LUNG BASES: No nodules nor pleural effusions evident. However, there is some abnormal flu id in the posterior retrocardiac mediastinum to the right of the esophagus and anterolateral to the a ashlee and behind the IVC. There is no hiatal hernia evident but there is herniation of some upper abd ominal fat through the diaphragm at this level noted.. Heart size is normal. There is no pericardia l effusion. ABDOMEN: There is no ascites below the hemidiaphragms. LIVER: There are no focal hepatic lesions evident. No dilated intrahepatic ducts. GALLBLADDER/BILIARY: Cholelithiasis noted. There is mild streaking around the gallbladder. CBD is n ot dilated. PANCREAS: No evidence of pancreatic mass nor dilatation of the pancreatic duct. SPLEEN: Spleen is not enlarged. No obvious intrasplenic lesions. Splenic and portal veins are paten t. ADRENALS: There are no significant adrenal masses. KIDNEYS:No cysts evident. No solid renal masses. No calculi nor hydronephrosis.. ABDOMINAL AORTA: Abdominal aorta is not enlarged. LYMPH NODES:There is no retroperitoneal nor paraaortic adenopathy. ABDOMINAL WALL: No evidence of significant anterior abdominal wall nor inguinal hernia. GI: There is no evidence of bowel obstruction, free air, nor abscess. PELVIS: GI: No evidence of appendicitis.No evidence of sigmoid diverticulitis. LYMPH NODES: There is no intrapelvic nor inguinal adenopathy. REPRODUCTIVE: Prostate size normal. Seminal vesicles unremarkable. Calcified lymph node is seen bet ween the seminal vesicles and rectum measuring approximately 1 cm. URINARY BLADDER: No calculi nor obvious masses evident. Non patent urachus noted. OSSEOUS: No fractures and no significant osseous lesions. IMPRESSION: 1. Cholelithiasis. There is also mild haziness around the gallbladder. Possible cholecystitis. CBD diameter upper normal. Recommend follow-up ultrasound. 2. No evidence of pancreatitis. 3. There is some upward herniation of abdominal fat through the hemidiaphragm adjacent to the esophag us, not associated with true hiatal hernia but there is some abnormal fluid in the retrocardiac poste rior mediastinum at this level. There is no pericardial effusion. Called by myself to ER physician. RADIATION DOSE DELIVERED: 1,261.77mGy.cm Total DLP DATA REPOSITORY: All CT scans at this facility are submitted to the National Radiology Data Registry (NRDR) Dose Index Registry (DIR) with the [employer] ([employer]). RADIATION OPTIMIZATION: All CT scans at this facility use at least one of these dose optimization te chniques: automated exposure control; mA and/or kV adjustment per patient size (includes targeted exa ms where dose is matched to clinical indication); or iterative reconstruction.
[2022-10-09] MEDS: MORPHine 4 MG/ML SYR IVP (14:12)
[2022-10-09] MEDS: Ondansetron 4 MG/2 ML VIAL IVP ×2 (14:12→18:08)
[2022-10-09 14:20] VITALS: BP 155/94; PULSE 82; RESP 18; TEMP 36.6; O2SAT 95
[2022-10-09] MEDS: Omnipaque 350 MG/ML 100 ML BTL IJ (15:15)
[2022-10-09] MEDS: Normal Saline - Diluent 50 ML VIAL IV (15:15)
[2022-10-09 15:30] VITALS: BP 117/79; PULSE 71; RESP 18; TEMP 36.5; O2SAT 95
[2022-10-09 16:15] VITALS: BP 143/86; PULSE 71; RESP 18; TEMP 36.3; O2SAT 93
[2022-10-09] MEDS: Normal Saline 1,000 ML 1000 ML IV (17:11)
[2022-10-09 17:26] LABS: Abs Immature Grans 0.08 10^3/uL (0.0-0.06); Absolute Basophil Count 0.13 10^3/uL (0.0-0.2); Absolute Monocyte Count 0.78 10^3/uL (0.1-0.8); Basophils % 0.9; Eosinophils % 2.7; HCT 35.5 % (40.0-50.0); HGB 12.1 g/dL (13.5-17.5); Immature Grans % 0.6; Lymphocytes % 21.8; MCH 31.1 pg (27.0-33.0); MCHC 34.1 % (32.0-36.0); MCV 91 fL (80-95); MPV 9.2 fL (8.0-11.0); Monocytes % 5.5; Neutrophils % 68.5; Platelet Count 445 10^3/uL (130-400); RBC 3.89 10^6/uL (4.36-5.78); RDW 11.9 % (11.8-14.1); RDW-SD 39.7 fL; WBC 14.24 10^3/uL (4.4-10.8)
[2022-10-09 17:27] LABS: Absolute Eosinophil Count 0.38 10^3/uL (0.0-0.7); Absolute Neutrophil Count 9.75 10^3/uL (1.2-6.7)
[2022-10-09 17:29] LABS: ALT 22 U/L (16-63); AST 16 U/L (15-37); Albumin 3.7 g/dL (3.4-5.0); Alkaline Phosphatase 51 U/L (46-116); Anion Gap 9.8 mmol/L (3-11); BUN 17 mg/dL (7-18); Bilirubin, Total 0.3 mg/dL (0.2-1.0); CO2 27.2 mmol/L (21.0-32.0); Chloride 105 mmol/L (98-107); Estimated GFR 92.26 (mL/min/1.73m2); Glucose 103 mg/dL (74-106); Lipase 131 U/L (16-77); Potassium 3.4 mmol/L (3.5-5.1); Sodium 142 mmol/L (136-145); Total Protein 6.9 g/dL (6.4-8.2); Troponin I < 50 ng/L (<or=60)
[2022-10-09 17:30] LABS: Lactate 0.6 mmol/L (0.6-1.4)
[2022-10-09] MEDS: MORPHine 4 MG/ML SYR (17:30)
[2022-10-09 17:32] LABS: Bilirubin Negative (Negative); Blood Negative (Negative); Clarity Clear (Clear); Glucose Negative (Negative); Ketones Negative (Negative); Leukocyte Esterase Negative (Negative); Nitrite Negative (Negative); Specific Gravity <= 1.005 (1.005-1.025); Urobilinogen 0.2 mg/dL (Up to 0.2)
--- NOTE | 2022-10-09 17:51 | W.EDPROG ---
Date of service: 10/09/22 Time of Service: 13:55 Medical Decision Making 47-year-old male presented for evaluation of 1 week of ongoing abdominal pain as well as white stool which started today. Patient's visit started during downtime. Please see paper charting for initial evaluation and history. Patient's laboratory studies show mild elevation of white count. Mild elevation of lipase. Otherwise normal LFTs. He received several doses of pain medication. Patient continues to appear uncomfortable. Pain primarily more in his upper abdomen. CT he concerning for possible cholecystitis. He does have cholelithiasis. He was given a dose of IV ceftriaxone. Case discussed with surgery, Dr Clayton, who will admit to their service. Imaging Data Radiologic Study: Radiologist's impression: CT abdomen pelvis 1. Cholelithiasis.? There is also mild haziness around the gallbladder.? Possible cholecystitis.? CBD diameter upper normal.? Recommend follow-up ultrasound. 2. No evidence of pancreatitis. 3. There is some upward herniation of abdominal fat through the hemidiaphragm adjacent to the esophagus, not associated with true hiatal hernia but there is some abnormal fluid in the retrocardiac posterior mediastinum at this level.? There is no pericardial effusion. Discharge Plan Disposition Patient Disposition: Admit to [facility] Condition: Stable Discharge Details Clinical Impression: Gallstones, Abdominal pain Primary Care Provider: Reed Fuller ED Provider: Tania Meng Home Meds and New Rx's Prescriptions: No Action amlodipine 5 mg tablet 5 mg PO DAILY Qty: 30 0RF oxycodone 5 mg tablet 5 mg PO Q6H PRN (Reason: pain) Qty: 14 0RF
[2022-10-09] MEDS: HYDROmorphone 2 MG/ML SYR 1 MG IVP (18:08)
[2022-10-09] MEDS: cefTRIAXone 2 GM/50 ML BAG IVPB (18:08)
--- NOTE | 2022-10-09 18:15 | RT.EKG_ITS ---
APPROVED REPORT Exam: Resting ECG Reason for Exam: abdominal pain Patient Location: E HR:77 bpm ECG Measurements Heart Rate 77 AXIS IA 126 P 30 QRSd 100 QRS 23 QT 385 T 38 QTc 437 Conclusion Sinus rhythm...normal P axis, V-rate 60- 99 Sinus rhythm. No prior. WD
[2022-10-09 18:42] VITALS: BP 115/81; PULSE 75; RESP 18; TEMP 36.4; O2SAT 95
--- NOTE | 2022-10-09 19:47 | HPE_ITS ---
Date of service: 10/10/22 Time of Service: 11:33 Assessment and Plan Assessment and plan (1) Hernia: Status: Chronic Assessment and plan: -chest CT -Patient does have gallstones. However I do not feel that it is his gallstones that are causing his problem. We will check a CT of the chest today. He will receive IV Protonix. Patient is not interested in having an EGD. He wants to eat and go home. Ultrasound did not show any signs of acute cholecystitis and his lab work is normal today. Reviewing his CT of the abdomen and pelvis, there is no diaphragmatic hernia . But he does have a small piece of fat that has herniated up into the chest this is not an acute. this is not an acute emergency. Patient does express a desire to go home today depending on what the CT shows we will have him follow- up [place] [facility] [place] of Present Illness Narrative: Pt came to the ED c/o vague epigastric pain in vague wavelike pattern. +Nausea. No Vomting. Pt noted white stools. Pt enies any radiation. Pt noted white stools. No diarrhea. Pt has a hx of gallstones. He is still having the pain today but it is not as severe. He describes it as up in the epigastricr.Region and feels like it goes up under his lungs. Its not worse with breathing. he denies any nausea vomiting. He is not sure He can eat. He denies any pain or difficulty swallowing. He has only occasionally heartburn, less than once a month, that is relieved with Tums or Rolaids. He is not losing any weight. His bowels are normally regular. He denies problems with constipation or diarrhea. Other than the episode of white stools the day before yesterday. He has not moved his bowels since he has been in the [facility]. He has had no unexplained weight loss. He has never had a colonoscopy or an EGD. He is a smoker. He does not really have pain in the right upper quadrant area. It does not radiate down into his back or shoulder. He is unsure if he is hungry or not. Srugery;s ventral hernia repair with mesh x2 Review of Systems All systems reviewed & are unremarkable except as noted in HPI and below PFSH All Active Problems Hernia (Chronic) Patient has had that is herniated up through the diaphragmatic hiatus. But there is no hiatal hernia per se. Gallstones (Acute) Abdominal pain (Acute) Left anterior knee pain (Acute) Hypertension (Chronic) Back pain, thoracic (Acute) Arthralgia (Acute) S/P ventral herniorrhaphy (Acute) Medical History (Updated 10/10/22 @ 11:46 by Angeline Clayton DO) Back pain GERD (gastroesophageal reflux disease) Gout Family History Father Heart disease Mother COPD (chronic obstructive pulmonary disease) Social History Smoking/Tobacco Use Status: Current every day Tobacco Type: smokeless tobacco Quit status: quit date established Smoking risk assessment performed?: Yes Alcohol Intake: never Drug use: Occasionally Substance use type: marijuana Household members: none Housing: house Do you feel safe at home: Yes Do you feel safe in your relationship?: Yes Meds Allergies and Home Medications Allergies Allergy/AdvReac Type Severity Reaction Status Date / Time ciprofloxacin [From Cipro] Allergy Intermediate Unverified 07/27/19 09:45 povidone-iodine Allergy Skin Rash Unverified 07/27/19 09:45 [From Betadine] soap [From Betadine] Allergy Skin Rash Unverified 07/27/19 09:45 ibuprofen AdvReac Intermediate GI Bleeding Unverified 07/27/19 09:45 adhesive AdvReac Mild unknown Verified 07/27/19 09:45 Home Medications Medication Instructions Recorded Confirmed Type amlodipine 5 mg tablet 5 mg PO DAILY #30 tabs 05/03/19 10/09/22 Rx oxycodone 5 mg tablet 5 mg PO Q6H PRN pain #14 tabs 05/27/19 10/09/22 Rx atorvastatin 20 mg tablet 20 mg DAILY 10/09/22 10/09/22 History probenecid 500 mg tablet 500 mg PO BID 10/09/22 10/09/22 History Exam Const General: cooperative, comfortable and no acute distress Nutritional Appearance: obese Orientation: alert, awake and oriented x3 Other: PHYSICAL EXAM GENERAL APPEARANCE: Alert, healthy appearance, oriented, x 3,? in no acute distress HYDRATION: Well hydrated HEAD, EYES, EARS, NECK, THROAT: Head is normocephalic, pupils equal, round, reactive to light and accommodation, ocular movement intact, sclera clear and no jaundice. ? LUNGS: normal respiration/normal chest excursion. ?Clear to auscultation bilaterally. ?No wheeze. ?HEART: Regular rate and rhythm. no murmurs ABDOMEN: soft and non-tender to palpation.? Normal bowel sounds.? Postsurgical changes noted, At the umbilicus. no signs of recurrence. He is not tender over the gallbladder. He does not have peritonitis. He has good bowel sounds. He is mildly tender in the epigastric region. Results Labs 10/10/22 06:00 10/10/22 06:00 Labs: Laboratory Results - last 24 hr 10/09/22 10/09/22 10/09/22 14:00 14:05 14:05 WBC 14.24 H RBC 3.89 L Hgb 12.1 L Hct 35.5 L MCV 91 MCH 31.1 MCHC 34.1 RDW 11.9 Plt Count 445 H MPV 9.2 Immature Gran % 0.6 Neutrophils % 68.5 Lymphocytes % 21.8 Monocytes % 5.5 Eosinophils % 2.7 Basophils % 0.9 Nucleated RBC % 0.0 Absolute Neutrophils 9.75 H Absolute Lymphocytes 3.10 Absolute Monocytes 0.78 Absolute Eosinophils 0.38 Absolute Basophils 0.13 VBG Lactate 0.6 Sodium Potassium Chloride Carbon Dioxide Anion Gap BUN Creatinine Est GFR (CKD-EPI 2020) Glucose Calcium Total Bilirubin AST ALT Alkaline Phosphatase Troponin I Total Protein Albumin Lipase Urine Color Yellow Urine Clarity Clear Urine pH 6.0 Ur Specific [place] <= 1.005 Urine Protein Negative Urine Ketones Negative Urine Blood Negative Urine Nitrite Negative Urine Bilirubin Negative Urine Urobilinogen 0.2 Ur Leukocyte Esterase Negative Urine Glucose Negative 10/09/22 14:05 WBC RBC Hgb Hct MCV MCH MCHC RDW Plt Count MPV Immature Gran % Neutrophils % Lymphocytes % Monocytes % Eosinophils % Basophils % Nucleated RBC % Absolute Neutrophils Absolute Lymphocytes Absolute Monocytes Absolute Eosinophils Absolute Basophils VBG Lactate Sodium 142 Potassium 3.4 L Chloride 105 Carbon Dioxide 27.2 Anion Gap 9.8 BUN 17 Creatinine 1.0 Est GFR (CKD-EPI 2020) 92.26 Glucose 103 Calcium 9.0 Total Bilirubin 0.3 AST 16 ALT 22 Alkaline Phosphatase 51 Troponin I < 50 Total Protein 6.9 Albumin 3.7 Lipase 131 H Urine Color Urine Clarity Urine pH Ur Specific [place] Urine Protein Urine Ketones Urine Blood Urine Nitrite Urine Bilirubin Urine Urobilinogen Ur Leukocyte Esterase Urine Glucose Last Vital Signs Temp 36.4 C L 10/09/22 18:42 Pulse 75 10/09/22 18:42 Resp 18 10/09/22 18:42 BP 115/81 10/09/22 18:42 Pulse Ox 95 10/09/22 18:42 Time Spent Time spent with Patient: >75 minutes Time was spent: preparing to see the patient(eg.review tests), obtaining and/or reviewing separately otained hiistory, ordering medications,tests, procedures, referring, communicating with other health pet care associate, indepentently interpreting results, counseling the patient and care coordination
[2022-10-09 20:35] VITALS: BP 126/80; PULSE 73; RESP 12; TEMP 36.6; O2SAT 97
[2022-10-09 20:36] VITALS: BP 136/80; PULSE 73; RESP 12; TEMP 36.6; O2SAT 97
[2022-10-09] MEDS: Pantoprazole 40 MG VIAL IVP (21:11)
[2022-10-09] MEDS: MORPHine 2 MG/ML SYR IVP (21:11)
[2022-10-09] MEDS: Acetaminophen 500 MG TAB 1000 MG PO (23:32)
--- NOTE | 2022-10-10 | DI.CT_ITS ---
Exam(s) CT CHEST WO EXAM: CT CHEST WO CLINICAL HISTORY: herniated omented. TECHNIQUE: Imaging protocol: Axial computed tomography images were obtained and coronal and sagittal reformatted images were created and reviewed. COMPARISON: CT CT CHEST WO from 05/03/[address] ABDOMEN PELVIS W from 10/09/2022 FINDINGS: Tracheobronchial tree: Patent where visualized. Pulmonary parenchyma: No consolidation or dominant measurable mass. No architectural distortion. Mediastinum and Lila: No dominant adenopathy or fluid collection. The esophagus is unremarkable.There is a fat containing hernia through the aortic hiatus. It extends into the retrocardiac space. Ther e is infiltration of the herniated fat and small amount of fluid seen. This is stable compared to th e CT scan of the abdomen and pelvis from 10/09/2022. The inflammation in fluid are new compared to th e examination from 2019. Thyroid gland: Unremarkable. Pleura: No effusion or pneumothorax. Heart: The heart is not dilated. No coronary artery calcifications are seen. No pericardial effusion. Aorta: Thoracic aorta non-dilated. Upper abdomen: Cholelithiasis. Lymph nodes: There are mildly enlarged axillary lymph nodes. The largest is on the left and measures 1.5 x 2.1 cm. Soft tissues: Unremarkable. Bones:Within normal limits for the patient's age. IMPRESSION: Fat herniation through the hiatal hernia extending into the retrocardiac space is again seen. There is mild infiltration of the fat and small amount of fluid seen. Infection/inflammation or ischemia c annot be excluded. RADIATION DOSE DELIVERED: 902.07mGy.cm Total DLP 902.07mGy.cm Total DLP DATA REPOSITORY: All CT scans at this facility are submitted to the National Radiology Data Registry (NRDR) Dose Index Registry (DIR) with the [employer] (ACR). RADIATION OPTIMIZATION: All CT scans at this facility use at least one of these dose optimization te chniques: automated exposure control; mA and/or kV adjustment per patient size (includes targeted exa ms where dose is matched to clinical indication); or iterative reconstruction.
[2022-10-10] MEDS: Acetaminophen 500 MG TAB 1000 MG PO (05:53)
[2022-10-10 06:15] VITALS: BP 117/75; PULSE 70; RESP 14; TEMP 36.6; O2SAT 98
[2022-10-10 06:40] LABS: Abs Immature Grans 0.05 10^3/uL (0.0-0.06); Absolute Eosinophil Count 0.35 10^3/uL (0.0-0.7); Absolute Lymphocyte Count 3.19 10^3/uL (1.2-3.4); Absolute Monocyte Count 0.62 10^3/uL (0.1-0.8); Absolute Neutrophil Count 6.17 10^3/uL (1.2-6.7); Eosinophils % 3.3; HGB 11.5 g/dL (13.5-17.5); Immature Grans % 0.5; Lymphocytes % 30.4; MCHC 32.9 % (32.0-36.0); MCV 94 fL (80-95); MPV 9.5 fL (8.0-11.0); Monocytes % 5.9; Neutrophils % 58.9; Platelet Count 389 10^3/uL (130-400); RBC 3.71 10^6/uL (4.36-5.78); RDW 12.4 % (11.8-14.1); RDW-SD 42.5 fL; WBC 10.48 10^3/uL (4.4-10.8)
--- NOTE | 2022-10-10 07:00 | DI.US_ITS ---
Exam(s) US ABDOMEN LIMITED EXAM: US ABDOMEN LIMITED CLINICAL HISTORY: acute cholecystitis TECHNIQUE: Ultrasound abdomen performed using standard protocol. COMPARISON: US US ABDOMEN from 06/20/[address] ABDOMEN PELVIS W from 10/09/2022 FINDINGS: PANCREAS: Normal where visualized. LIVER: There is fatty infiltration of the liver. Hepatopedal flow in the Portal Vein. The liver maciej ures in 21 cm length. GALLBLADDER:Gallstones are present. No evidence of wall thickening. No pericholecystic fluid identif ied. BILIARY SYSTEM: Common bile duct measures 8. No intrahepatic biliary ductal dilation. ESPOSITO'S SIGN: Negative. RIGHT KIDNEY: Kidney is normal in size. No evidence of renal calculi. No evidence of hydronephrosis. No renal mass or cyst identified. ASCITES: None seen. ABDOMINAL AORTA AND IVC: Visualized portions normal caliber. IMPRESSION: 1. Cholelithiasis without evidence of acute cholecystitis. 2. Upper limits of normal common bile duct. No choledocholithiasis is identified. 3. Hepatic steatosis and hepatomegaly. DATA REPOSITORY:
[2022-10-10 07:20] LABS: ALT 20 U/L (16-63); AST 12 U/L (15-37); Albumin 3.5 g/dL (3.4-5.0); Alkaline Phosphatase 48 U/L (46-116); Anion Gap 7.5 mmol/L (3-11); BUN 13 mg/dL (7-18); Bilirubin, Total 0.3 mg/dL (0.2-1.0); CO2 29.5 mmol/L (21.0-32.0); CREATININE 1.2 mg/dL (0.70-1.30); Calcium 8.8 mg/dL (8.5-10.1); Chloride 105 mmol/L (98-107); Estimated GFR 74.13 (mL/min/1.73m2); Glucose 100 mg/dL (74-106); Lipase 25 U/L (16-77); Potassium 3.7 mmol/L (3.5-5.1); Sodium 142 mmol/L (136-145); Total Protein 6.5 g/dL (6.4-8.2)
[2022-10-10] MEDS: MORPHine 2 MG/ML SYR IVP (09:51)
--- NOTE | 2022-10-10 10:33 | W.PM.PROGNOT ---
Date of Service Date of service: 10/10/22 Time of Service: 10:33 Objective Last Vital Signs Temp 36.6 C 10/10/22 06:15 Pulse 70 10/10/22 06:15 Resp 14 10/10/22 06:15 BP 117/75 10/10/22 06:15 Pulse Ox 98 10/10/22 06:15 Laboratory Results - last 24 hr 10/09/22 10/09/22 10/09/22 14:00 14:05 14:05 WBC 14.24 H RBC 3.89 L Hgb 12.1 L Hct 35.5 L MCV 91 MCH 31.1 MCHC 34.1 RDW 11.9 Plt Count 445 H MPV 9.2 Immature Gran % 0.6 Neutrophils % 68.5 Lymphocytes % 21.8 Monocytes % 5.5 Eosinophils % 2.7 Basophils % 0.9 Nucleated RBC % 0.0 Absolute Neutrophils 9.75 H Absolute Lymphocytes 3.10 Absolute Monocytes 0.78 Absolute Eosinophils 0.38 Absolute Basophils 0.13 VBG Lactate 0.6 Sodium Potassium Chloride Carbon Dioxide Anion Gap BUN Creatinine Est GFR (CKD-EPI 2020) Glucose Calcium Total Bilirubin AST ALT Alkaline Phosphatase Troponin I Total Protein Albumin Lipase Urine Color Yellow Urine Clarity Clear Urine pH 6.0 Ur Specific [place] <= 1.005 Urine Protein Negative Urine Ketones Negative Urine Blood Negative Urine Nitrite Negative Urine Bilirubin Negative Urine Urobilinogen 0.2 Ur Leukocyte Esterase Negative Urine Glucose Negative 10/09/22 10/10/22 10/10/22 14:05 06:00 06:00 WBC 10.48 RBC 3.71 L Hgb 11.5 L Hct 35.0 L MCV 94 MCH 31.0 MCHC 32.9 RDW 12.4 Plt Count 389 MPV 9.5 Immature Gran % 0.5 Neutrophils % 58.9 Lymphocytes % 30.4 Monocytes % 5.9 Eosinophils % 3.3 Basophils % 1.0 Nucleated RBC % 0.0 Absolute Neutrophils 6.17 Absolute Lymphocytes 3.19 Absolute Monocytes 0.62 Absolute Eosinophils 0.35 Absolute Basophils 0.10 VBG Lactate Sodium 142 142 Potassium 3.4 L 3.7 Chloride 105 105 Carbon Dioxide 27.2 29.5 Anion Gap 9.8 7.5 BUN 17 13 Creatinine 1.0 1.2 Est GFR (CKD-EPI 2020) 92.26 74.13 Glucose 103 100 Calcium 9.0 8.8 Total Bilirubin 0.3 0.3 AST 16 12 L ALT 22 20 Alkaline Phosphatase 51 48 Troponin I < 50 Total Protein 6.9 6.5 Albumin 3.7 3.5 Lipase 131 H 25 Urine Color Urine Clarity Urine pH Ur Specific [place] Urine Protein Urine Ketones Urine Blood Urine Nitrite Urine Bilirubin Urine Urobilinogen Ur Leukocyte Esterase Urine Glucose
[2022-10-10] MEDS: Atorvastatin 20 MG TAB PO (11:23)
--- NOTE | 2022-10-10 11:48 | DSE_ITS ---
Date of service: 10/10/22 Time of Service: 11:49 DS: Diagnosis Discharge Diagnosis (1) Hernia: Status: Chronic Asessment and Plan: -chest CT -fat herniated into the mediastinum. No diaphrgmatic hernia. Discharge Plan Disposition Patient Disposition: Home Condition: Good Discharge Details Reason For Visit: herniated didaphragmatic fat Admit Date/Time: 10/09/22 19:41 Admit Provider: Angeline Clayton Attending Provider: Angeline Clayton Primary Care Provider: Reed Fuller Home Meds and New Rx's Prescriptions: No Action amlodipine 5 mg tablet 5 mg PO DAILY Qty: 30 0RF oxycodone 5 mg tablet 5 mg PO Q6H PRN (Reason: pain) Qty: 14 0RF atorvastatin 20 mg tablet 20 mg DAILY probenecid 500 mg tablet 500 mg PO BID Patient Comments: TAKE 1 TABLET BY MOUTH EVERY MORNING AND 2 TABLETS EVERY NIGHT Discharge Instructions Instructions: Abdominal Pain (ED) Additional Instructions: -regular diet -f/u in surgery clinic for results of CT and possible consult to [facility] [place] -continue same medications -no lifting over 20#'s Stand Alone Forms: Nursing Discharge Form Referrals: Reed Fuller [Primary Care Provider] - Activity:: no lifting over 20#'s Equipment/Supplies:: No Equipment Needed Diet:: As Tolerated Discharge Orders Discharge Orders: Discharge Order (Routine); Ordered 10/10/22 Ordered By: Angeline Clayton DS: Summary Time Spent with Patient providing and/or coordinating discharge services: Greater than 30 minutes Status at Discharge Functional status at discharge: independent ambulation Overall status at discharge: patient is progressing back to baseline Mental Status: mental status grossly normal Speech and Movement: speech and movement normal Mood: congruent mood Affect: normal affect Exam Psych Mental Status: mental status grossly normal Speech and Movement: speech and movement normal Mood: congruent mood Affect: normal affect DS: Data Vitals/I&O Vitals and I&O: Vital Signs Temperature 36.6 C 10/10/22 06:15 Temperature Source Tympanic 10/10/22 06:15 Pulse 70 10/10/22 06:15 Pulse Rhythm Regular 10/10/22 07:45 Respiratory Rate 14 10/10/22 06:15 Respiratory Effort Normal, Non-Labored 10/10/22 07:45 Respiratory Depth Normal 10/10/22 07:45 Respiratory Pattern Normal 10/10/22 07:45 Blood Pressure 117/75 10/10/22 06:15 Pulse Oximetry 98 10/10/22 06:15 Oxygen Delivery Method Room Air 10/10/22 06:15 Oxygen Flow Rate 0 10/10/22 06:15 Pain Level 8 10/10/22 09:51 Intake & Output 10/09/22 10/09/22 10/10/22 11:59 23:59 11:59 Intake Total 1050 / 1050 Balance 1050 / 1050 Weight 136.078 kg Intake: IV 1050 / 1050 Data Completed and Pending Labs on day of discharge: Labs from last 24 hours 10/10/22 10/10/22 10/09/22 06:00 06:00 14:05 WBC 10.48 RBC 3.71 L Hgb 11.5 L Hct 35.0 L MCV 94 MCH 31.0 MCHC 32.9 RDW 12.4 Plt Count 389 MPV 9.5 Immature Gran % 0.5 Neutrophils % 58.9 Lymphocytes % 30.4 Monocytes % 5.9 Eosinophils % 3.3 Basophils % 1.0 Nucleated RBC % 0.0 Absolute Neutrophils 6.17 Absolute Lymphocytes 3.19 Absolute Monocytes 0.62 Absolute Eosinophils 0.35 Absolute Basophils 0.10 VBG Lactate Sodium 142 142 Potassium 3.7 3.4 L Chloride 105 105 Carbon Dioxide 29.5 27.2 Anion Gap 7.5 9.8 BUN 13 17 Creatinine 1.2 1.0 Est GFR (CKD-EPI 2020) 74.13 92.26 Glucose 100 103 Calcium 8.8 9.0 Total Bilirubin 0.3 0.3 AST 12 L 16 ALT 20 22 Alkaline Phosphatase 48 51 Troponin I < 50 Total Protein 6.5 6.9 Albumin 3.5 3.7 Lipase 25 131 H Urine Color Urine Clarity Urine pH Ur Specific [place] Urine Protein Urine Ketones Urine Blood Urine Nitrite Urine Bilirubin Urine Urobilinogen Ur Leukocyte Esterase Urine Glucose 10/09/22 10/09/22 10/09/22 14:05 14:05 14:00 WBC 14.24 H RBC 3.89 L Hgb 12.1 L Hct 35.5 L MCV 91 MCH 31.1 MCHC 34.1 RDW 11.9 Plt Count 445 H MPV 9.2 Immature Gran % 0.6 Neutrophils % 68.5 Lymphocytes % 21.8 Monocytes % 5.5 Eosinophils % 2.7 Basophils % 0.9 Nucleated RBC % 0.0 Absolute Neutrophils 9.75 H Absolute Lymphocytes 3.10 Absolute Monocytes 0.78 Absolute Eosinophils 0.38 Absolute Basophils 0.13 VBG Lactate 0.6 Sodium Potassium Chloride Carbon Dioxide Anion Gap BUN Creatinine Est GFR (CKD-EPI 2020) Glucose Calcium Total Bilirubin AST ALT Alkaline Phosphatase Troponin I Total Protein Albumin Lipase Urine Color Yellow Urine Clarity Clear Urine pH 6.0 Ur Specific [place] <= 1.005 Urine Protein Negative Urine Ketones Negative Urine Blood Negative Urine Nitrite Negative Urine Bilirubin Negative Urine Urobilinogen 0.2 Ur Leukocyte Esterase Negative Urine Glucose Negative PFSH All Active Problems Hernia (Chronic) Patient has had that is herniated up through the diaphragmatic hiatus. But there is no hiatal hernia per se. Gallstones (Acute) Abdominal pain (Acute) Left anterior knee pain (Acute) Hypertension (Chronic) Back pain, thoracic (Acute) Arthralgia (Acute) S/P ventral herniorrhaphy (Acute) Medical History (Updated 10/10/22 @ 11:46 by Angeline Clayton DO) Back pain GERD (gastroesophageal reflux disease) Gout Family History Father Heart disease Mother COPD (chronic obstructive pulmonary disease) Social History Smoking/Tobacco Use Status: Current every day Tobacco Type: smokeless tobacco Quit status: quit date established Smoking risk assessment performed?: Yes Alcohol Intake: never Drug use: Occasionally Substance use type: marijuana Household members: none Housing: house Do you feel safe at home: Yes Do you feel safe in your relationship?: Yes Time Spent with Patient Time Spent with Patient: 45-69 minutes Time was spent: preparing to see the patient(eg.review tests), obtaining and/or reviewing separately otained hiistory, ordering medications,tests, procedures, referring, communicating with other health health care / medical job titles, indepentently interpreting results, counseling the patient and care coordination
== END 2022-10-10 12:24 | disposition home or self-care (01) | DRG 395 ==
LOC: ER 19:13 → MS 20:35
PROVIDERS: Admitting Provider Surgery; Emergency Provider Emergency Medicine Emergency Medical Services; PCP Physician Assistant; Visit Provider Surgery
DX: K45.8 Other specified abdominal hernia without obstruction or gangrene (principal); K80.20 Calculus of gallbladder without cholecystitis without obstruction; R10.13 Epigastric pain; I10 Essential (primary) hypertension; K21.9 Gastro-esophageal reflux disease without esophagitis; M54.6 Pain in thoracic spine; M10.9 Gout, unspecified; F17.290 Nicotine dependence, other tobacco product, uncomplicated; F12.90 Cannabis use, unspecified, uncomplicated
CPT/HCPCS: 36415; 71250; 80053; 83690; 93005; 96361; 96365; 96375; 99222; 99239; 99285; 74177; 76705; 81003; 83605; 84484; 85025; 93010; 99284; J1170; J2270; J2405; J3490

== ENCOUNTER → 2022-10-27 10:36 | Outpatient (BNVA) | payer MEDICARE, MEDICAID, SELFPAY | PROVIDERS: PCP Physician Assistant; Referring Provider Physician Assistant; Visit Provider Surgery | DX: K46.9 Unspecified abdominal hernia without obstruction or gangrene (principal) | CPT/HCPCS: 99213 ==

== ENCOUNTER → 2023-06-15 02:25 | Outpatient (CLI) | payer MEDICARE, MEDICAID, SELFPAY ==
--- NOTE | 2023-06-15 | DI.US_ITS ---
Exam(s) US SCROTUM EXAM: US SCROTUM CLINICAL HISTORY: Rt Swelling of scrotum N50.89 other disorders of the male genital organs. TECHNIQUE: Scrotal ultrasound performed using grayscale, color-flow and spectral Doppler analysis. COMPARISON: No exams were available for comparison FINDINGS: Right testicle: 4.3 x 2.9 x 2.5 cm Echogenicity: Normal. Contour: Smooth. Mass: None seen. Microlithiasis: None. Hydrocele: There is a large right hydrocele measuring 6.1 x 3.3 x 4.8 cm. Variocele: None. Hernia: No peristalsing bowel loop identified. Epididymis: Small epididymal cysts are seen. The largest measures 2 mm. Left testicle: 4.0 x 2.4 x 2.7 cm Echogenicity: Normal. Contour: Smooth. Mass: None seen. Microlithiasis: None. Hydrocele: There is a small left hydrocele measuring 4.0 x 1.1 x 2.5 cm. Variocele: None. Hernia: No peristalsing bowel loop identified. Epididymis: Normal. DOPPLER: Color: Symmetric and uniform, no hyperemia. IMPRESSION: 1. Normal appearing bilateral testicles. 2. Large right hydrocele. Small left hydrocele. DATA REPOSITORY:
== END ==
PROVIDERS: PCP Physician Assistant; Visit Provider Physician Assistant
DX: N50.89 Other specified disorders of the male genital organs (principal); N43.2 Other hydrocele; N50.3 Cyst of epididymis
CPT/HCPCS: 76870

== ENCOUNTER 2023-06-24 18:43 | Outpatient (REF) | payer MEDICARE, MEDICAID, SELFPAY ==
[2023-06-24 16:18] LABS: HCT 40.5 % (40.0-50.0); HGB 12.7 g/dL (13.5-17.5); MCH 29.2 pg (27.0-33.0); MCHC 31.4 % (32.0-36.0); MCV 93 fL (80-95); MPV 9.5 fL (8.0-11.0); Platelet Count 478 10^3/uL (130-400); RBC 4.35 10^6/uL (4.36-5.78); RDW 12.8 % (11.8-14.1); WBC 7.16 10^3/uL (4.4-10.8)
[2023-06-24 16:38] LABS: Hemoglobin A1C 5.5 % (<5.7)
[2023-06-24 16:40] LABS: ALT 29 U/L (16-63); AST 25 U/L (15-37); Albumin 4.2 g/dL (3.4-5.0); Alkaline Phosphatase 65 U/L (46-116); Anion Gap 11.7 mmol/L (3-11); BUN 18 mg/dL (7-18); Bilirubin, Total 0.7 mg/dL (0.2-1.0); CO2 26.3 mmol/L (21.0-32.0); CREATININE 1.2 mg/dL (0.70-1.30); Calcium 9.6 mg/dL (8.5-10.1); Calculated LDL 70 mg/dL (<100); Chloride 107 mmol/L (98-107); Cholesterol 125 mg/dL (<200); Estimated GFR 74.13 (mL/min/1.73m2); Glucose 102 mg/dL (74-106); HDL Cholesterol 41 mg/dL (40-60); Potassium 4.4 mmol/L (3.5-5.1); Sodium 145 mmol/L (136-145); Total Protein 7.3 g/dL (6.4-8.2); Triglyceride 71 mg/dL (<150)
[2023-06-24 16:58] LABS: Uric Acid 8.2 mg/dL (3.5-7.2)
== END 2023-06-24 18:44 | disposition home or self-care (01) ==
LOC: NCHCN 18:43
PROVIDERS: PCP Physician Assistant; Visit Provider Physician Assistant
DX: E78.5 Hyperlipidemia, unspecified (principal); R73.03 Prediabetes; M10.9 Gout, unspecified
CPT/HCPCS: 80053; 80061; 85027; 83036; 84550

== ENCOUNTER → 2023-07-22 07:42 | Outpatient (BNVA) | payer MEDICARE, MEDICAID, SELFPAY | PROVIDERS: PCP Physician Assistant; Referring Provider Physician Assistant; Visit Provider Surgery | DX: K92.1 Melena (principal) | CPT/HCPCS: 99214 ==

== ENCOUNTER → 2023-10-06 10:45 | Outpatient (BNVA) | payer MEDICARE, MEDICAID, SELFPAY | PROVIDERS: PCP Physician Assistant; Referring Provider Physician Assistant; Visit Provider Nurse Practitioner Gerontology | DX: N43.3 Hydrocele, unspecified (principal) | CPT/HCPCS: 99214 ==

== ENCOUNTER → 2024-02-23 07:49 | Outpatient (BNVA) | payer MEDICARE, MEDICAID, SELFPAY | PROVIDERS: PCP Physician Assistant; Referring Provider Physician Assistant; Visit Provider Nurse Practitioner Gerontology | DX: N43.3 Hydrocele, unspecified (principal) | CPT/HCPCS: 99213 ==

== ENCOUNTER 2024-07-04 14:07 | Outpatient (REF) | payer MEDICARE, MEDICAID, SELFPAY ==
[2024-07-04 15:42] LABS: HCT 44.7 % (40.0-50.0); HGB 14.9 g/dL (13.5-17.5); MCHC 33.3 % (32.0-36.0); MCV 96 fL (80-95); MPV 9.1 fL (8.0-11.0); Platelet Count 427 10^3/uL (130-400); RBC 4.66 10^6/uL (4.36-5.78); RDW 11.6 % (11.8-14.1); RDW-SD 40.6 fL; WBC 10.78 10^3/uL (4.4-10.8)
[2024-07-04 16:00] LABS: ALT 28 U/L (16-63); AST 20 U/L (15-37); Albumin 4.3 g/dL (3.4-5.0); Alkaline Phosphatase 48 U/L (46-116); Anion Gap 12.2 mmol/L (3-11); BUN 26 mg/dL (7-18); Bilirubin, Total 0.5 mg/dL (0.2-1.0); CO2 21.8 mmol/L (21.0-32.0); CREATININE 1.1 mg/dL (0.70-1.30); Calcium 9.6 mg/dL (8.5-10.1); Calculated LDL 117 mg/dL (<100); Chloride 103 mmol/L (98-107); Cholesterol 213 mg/dL (<200); Estimated GFR 81.78 (mL/min/1.73m2); Glucose 97 mg/dL (74-106); HDL Cholesterol 55 mg/dL (>or=40); Potassium 4.6 mmol/L (3.5-5.1); Sodium 137 mmol/L (136-145); Total Protein 7.5 g/dL (6.4-8.2); Triglyceride 208 mg/dL (<150)
[2024-07-04 16:04] LABS: Hemoglobin A1C 5.2 % (<5.7)
== END 2024-07-04 14:08 | disposition home or self-care (01) ==
LOC: NCHCN 14:07
PROVIDERS: PCP Physician Assistant; Visit Provider Physician Assistant
DX: Z13.1 Encounter for screening for diabetes mellitus (principal); E78.5 Hyperlipidemia, unspecified; C61 Malignant neoplasm of prostate
CPT/HCPCS: 80053; 80061; 85027; 83036; 84153